=== PATIENT | male | born 1940 | race Caucasian/White ===

== ENCOUNTER 2016-08-18 02:39 | Inpatient (IN) | payer MEDICARE ==
--- NOTE | ~2016-08-18 | OP ---
Record Of Operation [facility] [address] [place]. [address] NAME: VIDHYA JAIN : 44 STATUS : ADM IN [facility]#: [id number] AGE: 75 ADM/REG DATE : 08/18/16 MR#: [id number] REPORT SERV DATE: 08/24/16 DICTATED BY: GRODON GOLDSMITH DATE: 08/24/16 REPORT STATUS : Draft TRANSCRIBED BY: MODL DATE: 08/24/16 DATE OF PROCEDURE: 08/24/2016 INTUBATION NOTE INDICATION FOR INTUBATION: Acute hypoxemic respiratory failure in the setting of septic shock. After developing worsening altered mental status/obtundation in the setting of septic shock, decision was made to intubate Mr. Jain. He was positioned in the usual fashion and premedicated with 20 mg of etomidate and 50 mg of rocuronium. PROCEDURE IN DETAIL: A #3 GlideScope was used to advance an 8.0 ET tube past his very sharp jagged teeth and into his trachea under direct visualization. After tube securement to his face with tape, it was noted that he was having hypoxemia in the 70s. He was bagged and only improved to the mid 80s. Tube was exchanged over a bougie with concern for a cuff leak due to a tear of the cuff when passing across his teeth; however, following exchange with a 7.5 ET tube, the original ET tube cuff was checked and had no leak. The 7.5 ET tube was once again visualized passing directly through the vocal cords using video laryngoscopy and secured to the patient at a depth of 22 cm. He had bilateral breath sounds after placement of both tubes and no air heard over the fundus of the stomach. There was positive color change on CO2 detector. After placement of both tubes as well as condensation visualized in tube with bagging, the patient did have hypotension with question of PEA arrest. Please see separate code blue note detailing those events. CHARLENE/FRAN Gordon Goldsmith MD / [id number] CC: Figueroa Brower M.D.
--- NOTE | ~2016-08-18 | CN ---
Consultation Report [facility] [address] [place]. [address] NAME: VIDHYA JAIN : 44 STATUS : ADM IN [facility]#: [id number] AGE: 75 ADM/REG DATE : 08/18/16 MR#: [id number] REPORT SERV DATE: 08/23/16 DICTATED BY: ALFREDA GOODRICH DATE: 08/23/16 REPORT STATUS : Draft TRANSCRIBED BY: MODL DATE: 08/23/16 CARDIOLOGY CONSULTATION DATE OF CONSULTATION: 08/23/2016 REASON FOR CONSULTATION: Atrial fibrillation and rapid ventricular response. HISTORY OF PRESENT ILLNESS: Mr. Jain is a 75-year-old man with a history of Crohn disease. The patient apparently was in his usual state of health until he was found by his son on 08/18/2016. The patient apparently had incontinence of stool and had fallen and was unable to get up. He was brought to an outside emergency room, where was found to have evidence of acute renal failure and shock. The patient was transferred to [facility] for further care. At this time, the patient is awake and cooperative. He is a relatively poor historian, however. He is borderline disoriented. He initially guessed the place as "[place]," but after prompting, is able to identify that he is in [place]. The patient does not appear to be aware that he is in a hospital setting. The patient denies any previous history of atrial fibrillation or other cardiovascular disease. He does report chronic exertional dyspnea, but denies any significant chest pain. The patient apparently became very weak before his fall. He is unable to accurately describe the circumstances of his pre-hospital course. At this time, the patient denies any unusual dyspnea or chest pain. PAST MEDICAL HISTORY: 1. Crohn disease. 2. Hypertension. 3. Dyslipidemia. PAST SURGICAL HISTORY: Unknown. FAMILY HISTORY: Apparently, negative for early coronary heart disease or sudden cardiac . SOCIAL HISTORY: The patient denies any previous history of tobacco use. There is no known history of alcohol or drug use. ALLERGIES: THE PATIENT REPORTS NO KNOWN MEDICATION ALLERGIES. HOME MEDICATIONS: 1. Allopurinol 300 mg p.o. daily. 2. Atenolol 50 mg p.o. daily. 3. Fenofibrate 160 mg p.o. daily. Consultation Report [facility] [address] [place]. [address] NAME: VIDHYA JAIN : 44 STATUS : ADM IN PAT#: [id number] AGE: 75 ADM/REG DATE : 08/18/16 MR#: [id number] REPORT SERV DATE: 08/23/16 DICTATED BY: ALFREDA GOODRICH DATE: 08/23/16 REPORT STATUS : Draft TRANSCRIBED BY: MODL DATE: 08/23/16 REVIEW OF SYSTEMS: An abbreviated review of systems is grossly negative; however, again the patient is a relatively poor historian and can provide only a limited review of systems. PHYSICAL EXAMINATION: VITAL SIGNS: The patient is presently on Levophed and esmolol. Heart rate is 118 beats per minute, blood pressure is 95/68 mmHg, temperature is 97.7 degrees Fahrenheit, oxygen saturation is 100% on a 2 L nasal cannula, respiratory rate is 13. CONSTITUTIONAL: The patient is a somewhat disheveled-appearing white man, who is in no acute distress. The patient is awake, alert and cooperative, though borderline disoriented to place and time. EYES: PERRL, EOMI, clear conjunctiva. HEAD, EARS, NOSE, THROAT: The patient has poor dentition with multiple missing teeth. Otherwise normal cranium, atraumatic with moist mucous membranes and grossly normal hard and soft palate. NECK: Supple with no obvious thyromegaly or lymphadenopathy. CARDIOVASCULAR: There is an irregularly irregular rhythm with a variable S1 and a physiologically split second heart sound. No significant murmurs, rubs, or gallops are noted. The jugular venous pressure appears to be at the upper limit of normal at 7 cm. PULMONARY: There are scattered posterior rales. The lungs are otherwise clear to auscultation bilaterally with no wheezing, rales, rhonchi, or dullness to percussion. ABDOMINAL: Soft, non-tender, non-distended with no hepatosplenomegaly noted. EXTREMITIES: There is 1+ pitting edema bilaterally with changes of chronic venous stasis. The patient's toenails are dystrophic. There is no clubbing or cyanosis noted. MUSCULOSKELETAL: Grossly normal strength and range of motion in all extremities. INTEGUMENTARY: Skin appears intact with no bruises, wounds, or active lesions noted. NEURO/PSYC: Alert and oriented x3 with no dysarthria, facial droop, or lateralizing weakness noted. DATA: 12-lead EKG: The patient's 12-lead EKG on admission shows atrial fibrillation. There is a right bundle-branch block pattern with nonspecific ST/T-wave abnormalities. Transthoracic echocardiogram: The patient's transthoracic echocardiogram dated 08/18/2016 shows normal left ventricular systolic function with a calculated ejection fraction of 55%. The study is technically difficult. There is a dilated left atrium. RV systolic function and RV size appear normal. Laboratory: Electrolytes show a sodium of 138, potassium 3.9, chloride is 98, CO2 of 23, BUN 12, creatinine is 2.07, glucose is 179, calcium is 8.6. Of note, the patient is currently on CRRT. Cell count shows a white blood cell count of 6.0, hemoglobin 8.1, hematocrit 24, platelets 48. Consultation Report [place] [id number] [facility] [place]. [address] NAME: VIDHYA JAIN : 44 STATUS : ADM IN [facility]#: [id number] AGE: 75 ADM/REG DATE : 08/18/16 MR#: [id number] REPORT SERV DATE: 08/23/16 DICTATED BY: ALFREDA GOODRICH DATE: 08/23/16 REPORT STATUS : Draft TRANSCRIBED BY: FRAN DATE: 08/23/16 Chest x-ray: The patient's chest x-ray on admission appeared to show mild volume overload with no other acute cardiopulmonary process. ASSESSMENT AND PLAN: 1. Atrial fibrillation with rapid ventricular response: The patient is currently being treated with both esmolol and Levophed. I have recommended that the patient be started on Edgar-Synephrine as this may allow down-titration of the patient's Levophed dose, which may in turn allow down-titration of the patient's esmolol dose. The patient's heart rate is currently in the range of 80 to 90 beats per minute. The patient's heart rate may be allowed to increase to a maximum of 120 beats per minute, which would be appropriate given his critically ill state. At this time, the patient does not appear to be a candidate for anticoagulation given possible acute GI bleed. The patient was noted to have heme-positive stool. We will consider a heparin drip if this is acceptable to the primary service and if a GI source of ongoing blood loss has been excluded. 2. Evaluation for coronary heart disease: Eventually, the patient should probably undergo a noninvasive workup for myocardial ischemia. The patient appears to have no other significant structural heart disease to explain his atrial fibrillation. This may be performed on an outpatient basis if appropriate. 3. Shock: The patient is felt to have aspiration pneumonia. His blood cultures have apparently been negative. The patient is being treated with stress-dose hydrocortisone and IV Zosyn. 4. Acute renal failure: The patient is being treated with CRRT. The Cardiology Service will continue to follow the patient closely during this hospitalization. JCH/MODL Alfreda Goodrich MD / [id number] CC: Jayant Padilla Amanda
--- NOTE | ~2016-08-18 | CN ---
Consultation Report [facility] [address] [place]. [address] NAME: VIDHYA JAIN : 44 STATUS : ADM IN [facility]#: [id number] AGE: 75 ADM/REG DATE : 08/18/16 MR#: [id number] REPORT SERV DATE: 08/24/16 DICTATED BY: KELLY GOLDSMITH DATE: 08/24/16 REPORT STATUS : Draft TRANSCRIBED BY: MODValery DATE: 08/24/16 DATE OF CONSULTATION: CODE BLUE SUMMARY Code blue was initiated following intubation to Mr. Jain in the CCU bed 4 at 10:40 a.m. The patient had just been intubated and we had difficulty obtaining O2 sat and he was noted to have thready pulses shortly following placement of endotracheal tube. CPR was initiated and he received 1 amp of epinephrine. ET tube was exchanged over a bougie under direct visualization video laryngoscopy and the original ET tube did not have a cuff leak which was a suspicion due to his sharp jagged teeth. There was no evidence of a cuff leak on inspection of the first tube and our working diagnosis is hemodynamic instability in the setting of profound septic shock currently requiring multiple vasopressors (when his intrathoracic pressures changed from negative to positive pressure ventilation after intubation, we suspected that this was the inciting factor for his hemodynamic instability). His PEA was detected at 10:40 and by 10:42, he had sinus tach on the monitor with a blood pressure of 136/85 and heart rate of 108. A followup x-ray confirmed tube position and his family was updated by telephone. CHARLENE/FRAN Kelly Goldsmith MD / [id number] CC: Figueroa Brower M.D.
--- NOTE | ~2016-08-18 | DS ---
Discharge Summary [facility] [address] [place]. [address] NAME: VIDHYA JAIN : 44 STATUS : ADM IN PAT#: [id number] AGE: 75 ADM/REG DATE : 08/18/16 MR#: [id number] REPORT SERV DATE: 08/25/16 DICTATED BY: GORDON GOLDSMITH DATE: 08/25/16 REPORT STATUS : Draft TRANSCRIBED BY: MODL DATE: 08/25/16 ADMISSION DATE: 08/18/2016 DISCHARGE DATE: Summary DATE OF : 08/25/2016. Mr. Jain is a 75-year-old gentleman transferred from [facility] in [place] who was found down by his son in a pool of stool. Apparently, he had not moved in a couple of days, although he had been awake. He had a longstanding history of Crohn's disease for over 40 years. He showed marked metabolic acidosis and mild hypotension on his initial presentation. He was admitted by Dr. Brower and also seen by Nephrology, Dr. Julio, on 08/18/2016. He was started on dialysis by Dr. Julio on the for acute kidney injury and was seen by Dr. Goodrich from Cardiology for atrial fibrillation with RVR on the at the request of Dr. Vasquez. I first met Mr. Jain on the after being transferred from Dr. Vasquez's service in the MICU to the CCU for SWITCHBOARD INSPECTOR availability, and on my initial assessment, he was altered and not protecting his airway with profound metabolic acidosis. I intubated him on the , and he actually developed a PEA arrest shortly after intubation presumably secondary to the hemodynamic changes associated with transition from negative pressure ventilation and positive pressure ventilation. He was broadened out to vancomycin and meropenem in light of worsening lactic acidosis despite SWITCHBOARD INSPECTOR and underwent a CT of the abdomen searching for sources of intra-abdominal sepsis with a high suspicion for bowel in the setting of long-standing Crohn's disease and refractory lactic acidosis despite SWITCHBOARD INSPECTOR. Unfortunately, he was far too unstable at this point to undergo any sort of surgical intervention and had 2 additional code blues (PEA arrests) that evening which were managed by Dr. Cheatham. He was ultimately made DNR based on his overall very poor prognosis by Dr. Steciw and in the CCU at 0635 hours and pronounced by nursing staff x2. His family (Joshua Jain) [phone] was updated at length on his deterioration multiple times over the last 2 days, and all of his questions were answered. DIAGNOSES AT TIME OF : Acute hypoxemic respiratory failure, profound septic shock, profound metabolic acidosis, acute renal failure, aspiration pneumonia, and Crohn's disease. Please see admitting history and physical, consulting notes, and daily progress notes for additional details of his hospital course. CHARLENE/FRAN Gordon Goldsmith MD / [id number]
--- NOTE | ~2016-08-18 | OP ---
Record Of [facility] [address] [place]. [address] NAME: VIDHYA GUTIERREZ : 44 STATUS : ADM IN PAT#: [id number] AGE: 75 ADM/REG DATE : 08/18/16 MR#: [id number] REPORT SERV DATE: 08/25/16 DICTATED BY: MEHREEN CHEATHAM DATE: 08/25/16 REPORT STATUS : Draft TRANSCRIBED BY: MODL DATE: 08/25/16 DATE OF PROCEDURE: CODE BLUE NOTE DATE OF CODE: 08/24/2016 at 2129 hours. The patient was in PEA. CPR was in progress upon my arrival. The patient already had been intubated earlier in the day. Two amps of epinephrine were given. Chest compressions were continued, and 1 amp of bicarbonate was given. There was return of circulation after 5 minutes. The patient was responsive to verbal commands. The patient's family was notified. /FRAN Mehreen Cheatham M.D. / [id number] CC: Figueroa Brower M.D.
--- NOTE | ~2016-08-18 | HP ---
History And Physical [place] [id number] [place]. [address] NAME: VIDHYA JAIN : 44 STATUS : ADM IN [facility]#: [id number] AGE: 75 ADM/REG DATE : 08/18/16 MR#: [id number] REPORT SERV DATE: 08/18/16 DICTATED BY: ANGEL CARRILLO DATE: 08/18/16 REPORT STATUS : Draft TRANSCRIBED BY: MODValery DATE: 08/18/16 DATE OF ADMISSION: 08/18/2016 TIME: 0317 hours. Seen in MICU, bed 9. HISTORY OF PRESENT ILLNESS: Mr. Jain was transferred from [facility], [place], [place]. He is a 75-year-old white male. According to the ER physician with whom I spoke, Mr. Jain was found down by his son in a pool of bowel movement. Apparently, had moved in a day or 2. He was awake, however, and brought to the ER in [facility]. The significance of past medical history is Crohn disease over 40 years, but denied any resections for his Crohn's. Apparently, not taking any current medication for his Crohn's as far as we can tell. His physician told me that he is mildly hypotensive, but awake and responsive. Arterial blood gases showed a marked metabolic acidosis. The patient said he had flu 3 weeks ago and has fallen twice in the past two weeks. PAST MEDICAL HISTORY: Significant for hypertension, hypercholesterolemia, and Crohn disease. HOME MEDICATIONS: Include allopurinol 300 mg 1 tablet p.o. daily, atenolol 50 mg 1 tablet p.o. daily, and fenofibrate 160 mg oral tablet daily. ALLERGIES: NO KNOWN ALLERGIES. SOCIAL HISTORY: He is retired. He has a son. PHYSICAL EXAMINATION: VITAL SIGNS: On examination, his vital signs at [place] were 92/45, pulse 94, respiratory rate was 22, saturation was 81%. Chest x-ray there reveals evidence of some pulmonary infiltrate. Vital signs here, temperature 95 to 96. Blood pressure 80/70, pulse approximately 90. GENERAL: The patient is a pale-appearing male, awake, alert, and appears to be responsive, appears dehydrated. HEENT: Head is normocephalic. Oral mucosa dry. NECK: Supple. No JVD. CHEST: Decreased breath sounds. Occasional crackle. CARDIAC: S1 and S2. No murmurs or gallops. ABDOMEN: Soft and nontender. No masses or organomegaly. EXTREMITIES: No clubbing, cyanosis, or edema. NEUROLOGIC: Cranial nerves II through XII are intact. Deep tendon reflexes are present, but diminished. LABORATORY DATA: Laboratory data obtained from [facility] record was done at 22:49 p.m. on 08/17/2016; pH of 7.18, pCO2 of 18, PO2 of 82, base excess -19.7, saturation was 92%. Sodium 140, potassium , chloride 107, CO2 of 6, anion gap was 27, History And Physical [place] [id number] [facility] [place]. [address] NAME: VIDHYA JAIN : 44 STATUS : ADM IN [facility]#: [id number] AGE: 75 ADM/REG DATE : 08/18/16 MR#: [id number] REPORT SERV DATE: 08/18/16 DICTATED BY: ANGEL CARRILLO DATE: 08/18/16 REPORT STATUS : Draft TRANSCRIBED BY: MODValery DATE: 08/18/16 glucose of 80; he had been hypoglycemic on arrival at [place]. His glucose at point of care was 57. BUN was 143, potassium was 25.2, GFR 1.5, calcium is 8.4. His albumin level was 3.5, total protein 6.2, globulin 2.7, magnesium 2.2. Troponin 1.05. ProBNP 24,409. Alkaline phosphatase 44, lipase 252, AST 26, ALT 8, bilirubin 0.6. Lactic acid 1.43, within normal results . H and H are 8.2 and 25.0, white count 5900, platelet count 79,000. The BNP is actually the proBNP at 24,409 and the normal range is 0.0 to 900. PT was 12.8, PTT 39.9, INR 0.9. X-ray was reviewed, mild fatty infiltration x-ray. IMPRESSION: 1. The patient presents with significant dehydration and acute renal failure. I suspect rhabdomyolysis and CPK had not been done. 2. Severe metabolic acidosis. 3. Possible evidence of aspiration pneumonia. 4. Markedly elevated proBNP, may be due to his renal failure. PLAN: Start rehydration. We will consult Nephrology. His potassium seems to be under control, right now. Remeasure labs and get lines placed for rehydration and possible administration of pressors and check CPK. RP/MODL Angel Carrillo M.D. / [id number] CC: Angel Carrillo M.D.
--- NOTE | ~2016-08-18 | OP ---
Record Of Operation [facility] [address] [place] [address] NAME: VIDHYA GUTIERREZ : 44 STATUS : ADM IN PAT#: [id number] AGE: 75 ADM/REG DATE : 08/18/16 MR#: [id number] REPORT SERV DATE: 08/25/16 DICTATED BY: MEHREEN CHEATHAM DATE: 08/25/16 REPORT STATUS : Draft TRANSCRIBED BY: MODL DATE: 08/25/16 DATE OF PROCEDURE: 08/24/2016 PROCEDURE: Placement of right femoral central line. REASON: The patient is status post code blue x2. 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 Right groin was prepped and draped in sterile fashion. Lidocaine 1% was used as a local anesthetic. The right femoral artery was localized using ultrasound guidance. Large bore needle was inserted under ultrasound guidance into the right femoral artery with good blood return. Guidewire was threaded over the needle which was then removed and a 12 cm catheter was threaded over the guidewire with subsequent removal of the guidewire. The line was sewn in place with 2-0 silk. Good blood waveform was transduced. Procedure without complications. /FRAN Mehreen Cheatham M.D. / [id number] CC: Figueroa Brower M.D.
--- NOTE | ~2016-08-18 | CN ---
Consultation Report [facility] [address] [place]. [address] NAME: VIDHYA JAIN : 44 STATUS : ADM IN PAT#: [id number] AGE: 75 ADM/REG DATE : 08/18/16 MR#: [id number] REPORT SERV DATE: 08/18/16 DICTATED BY: PAPO EMANUEL DATE: 08/18/16 REPORT STATUS : Draft TRANSCRIBED BY: FRAN DATE: 08/18/16 NEPHROLOGY CONSULT NOTE DATE OF CONSULTATION: HISTORY OF PRESENT ILLNESS: Mr. Jain is a 75-year-old white male, lives in [place], [place], has longstanding history of Crohn's with bowel resection in the past, none recently; chronic gout, on allopurinol; hypertension, on atenolol; hyperlipidemia, on fenofibrate. No known drug allergies. Recently, he had a bout with a flu. Yesterday, he was taken to the [facility] for falling at home. His son came home, found him in a pool of diarrhea, weak, and took him to the emergency room where he was found to have a creatinine of 25. I am consulted for assist in management of acute renal failure. Old records revealed that his PCP is Dr. Mane Hogan, phone number [phone] in [place], and he follows him for Crohn's, hypertension, gout, and hyperlipidemia, has not seen him since February of last year. At that time, his creatinine was 1.89, which has been stable for the last couple of years. The patient tells me he has had the flu a couple of weeks ago and then fell four days ago off the back steps, injured his back, and fell again the day of admission, and that is what prompted visit to the ER. He has had a lot of diarrhea lately. He has also not noticed any blood in his stools. He has been feeling well until recently when he quit eating and has become very very weak (his son said he even went out and bought a cane because he was unstable walking). SOCIAL HISTORY: Retired. His son cares for him, although he lives alone. ALLERGIES: HE HAS NO KNOWN DRUG ALLERGIES. FAMILY HISTORY: Noncontributory. HOME MEDICATIONS: Allopurinol, atenolol, and fenofibrate. REVIEW OF SYSTEMS: As above. Denies any fever, chills, but not a very good historian at this point and son is not available. PHYSICAL EXAMINATION: VITAL SIGNS: Blood pressures have been low. He has been on pressors. Blood pressure has been low, as low as 65/46, and they have adjusted his pressors accordingly, currently at 110 with a heart rate of 108, afebrile, 98.4. GENERAL: He is alert and does answer questions, complaining of back pain. He tells me he fell off the back stoop. HEENT: Otherwise, unremarkable. LUNGS: Clear anteriorly. CARDIOVASCULAR: Without rub. ABDOMEN: Soft. Old incisions noted. Consultation Report [address] [place]. [address] NAME: VIDHYA JAIN : 44 STATUS : ADM IN [facility]#: [id number] AGE: 75 ADM/REG DATE : 08/18/16 MR#: [id number] REPORT SERV DATE: 08/18/16 DICTATED BY: PAPO EMANUEL DATE: 08/18/16 REPORT STATUS : Draft TRANSCRIBED BY: FRAN DATE: 08/18/16 EXTREMITIES: 1+ edema in his lower extremities, but wrinkly where he probably has had more edema in the recent past. Dry, flaky skin on both feet with skin lesion medially in his left foot. NEUROLOGIC: He is oriented x3 and cooperative, but he is nonfocal and weak diffusely. LABORATORY DATA: Lab shows sodium 146, potassium 5.4, chloride 112, CO2 of 10 with BUN of 141, creatinine 22.2. Blood sugar 113, albumin 2.9. Normal liver enzymes. CPK of 909 and negative MBs with troponin 0.3. TSH elevated at 129, low T4 at 0.9, low B12 at 155. Elevated BNP of 1637, normal cortisol of 27. INR of 1.0. Stool shows C diff negative, positive guaiac. Blood gas revealed pH of 7.33, pCO2 of 13, pO2 of 129 on 36% FiO2. White count is 5.1, hemoglobin 6.8, hematocrit 20, platelet count 77,000 (has received a unit of blood). Urinalysis shows proteinuria, quite heavy, specific gravity 1.014 and white count is 51,000. Culture pending. Chest x-ray shows bilateral infiltrates, possibly aspiration. ASSESSMENT: 1. Acute kidney injury on chronic kidney disease. Baseline creatinine 1.9, multifactorial, probably volume contraction from diarrhea and poor p.o. intake. Moderate rhabdo, CPK less than a 1000. CPK may have progressed since last seen in February of last year, especially if he has been feeling ill lately and recent bout of flu, cannot rule out sepsis although white count is normal. Procalcitonin pending. Cultures pending. 2. Anemia, it appears to be acute. 3. Crohn disease, status post partial bowel resection, diarrhea recently, C diff negative, normal liver enzymes, suspect viral or medication induced, cannot tell me what all medications he has been taking in addition to his baseline medicines, and his son lets the patient takes his own medications. 4. Hypertension, currently hypotensive, on Levophed. 5. Gout, on allopurinol at home. 6. Elevated lipids, on fenofibrate at home. 7. Recent flu two weeks ago, apparently recovered although some of his GI symptoms may still be related to viral illness. 8. Recent fall four days to seven days ago with back pain. 9. Bilateral infiltrates, probably aspiration pneumonia after being found down at home. 10.Hypothyroidism, which is a new diagnosis and B12 deficiency, which is a new diagnosis along with anemia with positive stool guaiacs, worry about GI losses. No history of any other blood losses. 11.Stool guaiac positive. 12.Metabolic acidosis, quite severe, suspect secondary to diarrhea plus acute kidney injury on chronic kidney disease. 13.Elevated CPK from muscle injury. 14.Positive troponin and elevated BNP, worry about congestive heart failure. Echocardiogram has been done, but results pending. 15.History of gout. PLAN: He has no strong indication for acute dialysis at this point, we will continue current Consultation Report [facility] [place] [id number] [place]. [address] NAME: VIDHYA JAIN : 44 STATUS : ADM IN [facility]#: [id number] AGE: 75 ADM/REG DATE : 08/18/16 MR#: [id number] REPORT SERV DATE: 08/18/16 DICTATED BY: PAPO EMANUEL DATE: 08/18/16 REPORT STATUS : Draft TRANSCRIBED BY: MODL DATE: 08/18/16 therapy, watch serial labs, and decide day-to-day. His son is on his way here, we will discuss the situation with him. I have called Dr. Mane Hogan and ct review of his past medical history with him, and he is faxing all of his records from last visit on 02/25/2016. KELLI/FRAN Papo Emanuel M.D. / [id number] CC: Figueroa Brower M.D. Dr. Mane Hogan
--- NOTE | ~2016-08-18 | OP ---
Record Of Operation [facility] [address] [place]. [address] NAME: VIDHYA GUTIERREZ : 44 STATUS : ADM IN PAT#: [id number] AGE: 75 ADM/REG DATE : 08/18/16 MR#: [id number] REPORT SERV DATE: 08/20/16 DICTATED BY: ROMERO PAUL DATE: 08/19/16 REPORT STATUS : Draft TRANSCRIBED BY: MODL DATE: 08/19/16 DATE OF PROCEDURE: 08/19/2016 PREOPERATIVE DIAGNOSIS: End-stage renal disease. POSTOPERATIVE DIAGNOSIS: End-stage renal disease PROCEDURE: Right IJ PermCath. SURGEON: Romero Paul MD ANESTHESIA: Local with sedation. COMPLICATIONS: None. BLOOD LOSS: Minimal. HISTORY: The patient is a 75-year-old male with renal failure in need of PermCath for dialysis. This was discussed with the family, they expressed understanding, and desired to proceed DESCRIPTION OF PROCEDURE: The patient was taken to the operating room and placed in the supine position. He was given IV sedation without complication. His neck and chest were prepped and draped in sterile fashion. Ultrasound was used to identify the internal jugular vein on the right. Patency was confirmed with compression. 1% lidocaine was infiltrated in the skin and subcutaneous tissues. Under ultrasound guidance, an 18-gauge needle placed into the internal jugular vein. Wire passed into the SVC and IVC under fluoroscopic guidance. The needle was removed. A site for PermCath exit was chosen on the chest wall. 1% lidocaine was infiltrated here. An 11 blade was used to create an exit site for the PermCath and enlarge the access site. The 24 curved PermCath was tunneled from the exit site to the access site. Under fluoroscopic guidance, the peel-away sheath and dilator passed were passed over the wire into the SVC. The wire and dilator removed. The catheter was placed through the peel-away sheath and the sheath was peeled away without difficulty. Both ports aspirated and flushed without difficulty. They were locked with full strength heparin. The access site and exit site were closed with 4-0 Monocryl suture. The PermCath was secured to the chest wall with Ethilon suture. The patient did have an episode of desaturation and anesthesia manages first with attempted intubation then with bagging and his sats came up without problem. CSRon/FRAN Romero Paul M.D. Record Of Operation [facility] [address] [place]. [address] NAME: VIDHYA GUTIERREZ : 44 STATUS : ADM IN PAT#: [id number] AGE: 75 ADM/REG DATE : 08/18/16 MR#: [id number] REPORT SERV DATE: 08/20/16 DICTATED BY: ROMERO PAUL DATE: 08/19/16 REPORT STATUS : Draft TRANSCRIBED BY: FRAN DATE: 08/19/16 / [id number] CC: Jayant Padilla
[2016-08-18 03:28] LABS: ALLENS TEST Pos; BE (BASE EXCESS) -19.8 MEQ/L (0 +/- 2.5); CARBOXYHEMOGLOBIN 0.3 % (0-3); DEVICE NC; HCO3 (ACTUAL BICARBONATE) 6.4 MEQ/L (23-27); HEMOBLOGIN CONTENT 8.6 G/DL (14-18); INSTRUMENT SERIAL # 8083; METHEMOGLOBIN 0.3 % (0-3); O2 CONTENT 11.6 VOL% (18-24); OPERATOR ID 334499; PCO2 (CO2 TENSION) 17 MMHG (35-45); PO2 (O2 TENSION) 103 MMHG (79-93); SAMPLE Arterial
[2016-08-18 04:43] LABS: ALLENS TEST Pos; BE (BASE EXCESS) -17.6 MEQ/L (0 +/- 2.5); CARBOXYHEMOGLOBIN 0.4 % (0-3); DEVICE NC; HCO3 (ACTUAL BICARBONATE) 6.8 MEQ/L (23-27); INSTRUMENT SERIAL # 8083; METHEMOGLOBIN 0.1 % (0-3); O2 CONTENT 8.5 VOL% (18-24); OPERATOR ID 334499; PCO2 (CO2 TENSION) 13 MMHG (35-45); PO2 (O2 TENSION) 129 MMHG (79-93); SAMPLE Arterial; pH 7.33 (7.37-7.43)
[2016-08-18 04:44] LABS: MEAN CORPUS HGB CONC 33.8 g/dL (32.0-36.0); MEAN CORPUSCULAR HEMOGLOB 34.9 pg (26.0-34.0); MEAN CORPUSCULAR VOLUME 103.1 fL (80-100); MEAN PLATELET VOLUME 10.8 fL (9.2-13.0); PLATELET COUNT 77 10/3/uL (150-400); RBC DISTRIBUTION WIDTH 16.2 % (12.0-16.0); RED CELL COUNT 1.95 10/6/uL (4.7-6.1); WHITE BLOOD CELLS 5.1 10/3/uL (4.5-10.5)
[2016-08-18 04:45] LABS: HEMATOCRIT 20.1 % (40.0-51.0); HEMOGLOBIN 6.8 g/dL (13.6-17.8); PROTIME (NOT ORD) 13.5 SEC (12.0-14.5)
[2016-08-18 04:46] LABS: PARTIAL THROMBO TIME 38.9 SEC (22.5-37.2)
[2016-08-18 04:48] LABS: MANUAL DIFF YES %
[2016-08-18 04:57] LABS: ALBUMIN 2.9 G/DL (3.5-5.0); ALKALINE PHOSPHATASE 43 U/L (45-117); CALCIUM, SERUM 8.3 MG/DL (8.5-10.4); CHLORIDE, SERUM 112 MMOL/L (96-112); CPK (IF ELEVATED MB BANDS) 909 U/L (0-200); GFR AFRICAN AMERICAN 2 ML/MIN (>=60); GFR NON AFRICAN AMERICAN 2 ML/MIN (>=60); GLUCOSE, SERUM 113 MG/DL (60-99); POTASSIUM, SERUM 5.4 MMOL/L (3.5-5.3); SGOT(AST) 28 U/L (5-40); SGPT(ALT) 12 U/L (5-65); SODIUM, SERUM 146 MMOL/L (135-148); T4 (THYROXINE) TOTAL 0.9 MCG/DL (4.5-12.0); TOTAL BILIRUBIN 0.9 MG/DL (0-1.2); TOTAL PROTEIN 5.9 G/DL (6.0-8.5)
[2016-08-18 04:59] LABS: BUN (BLOOD UREA NITROGEN) 141 MG/DL (6-23); CO2 (CARBON DIOXIDE) 10 MMOL/L (24-34)
[2016-08-18 05:09] LABS: BAND NEUTROPHILS 6 %; LYMPHOCYTES 12 %; LYMPHOCYTES ABSOLUTE (CALC) 0.61 10/3/uL (0.67-4.30); MONOCYTES 1 %; MONOCYTES ABSOLUTE (CALC) 0.05 10/3/uL (0.21-1.20); NEUTROPHILS ABSOLUTE (CALC) 4.44 10/3/uL (2.02-8.40); SEGMENTED NEUTROPHIL (0) 81 %; TOTAL NUCLEATED CELLS 100
[2016-08-18 05:10] LABS: BURR CELLS 1+ (3-10/OIF) (0-2/OIF); MACROCYTES 1+ (5-10/OIF) (0-5/OIF); PLATELET ESTIMATE DEC (ADEQUATE)
[2016-08-18 05:21] LABS: CK-MB 43.1 NG/ML
[2016-08-18 05:25] LABS: CKMB INDEX (NOT ORD) 4.7
[2016-08-18 06:44] LABS: INFLUENZA A SCREEN NEGATIVE (NEGATIVE); INFLUENZA B SCREEN NEGATIVE (NEGATIVE)
[2016-08-18 06:57] LABS: ASCORBIC ACID (UR NOT ORDER) NEG (NEG); BILIRUBIN, URINE NEGATIVE (NEG); KETONE, URINE TRACE MG/DL (NEG); LEUKOCYTE ESTERASE(NOT OR SMALL (NEG); WBC (NOT ORDERED) (RFLEX) 51 (0-5)
[2016-08-18 07:33] LABS: FOLATE 18.4 NG/ML (>5.2)
[2016-08-18 13:59] LABS: ALBUMIN 2.9 G/DL (3.5-5.0); BUN (BLOOD UREA NITROGEN) 143 MG/DL (6-23); CALCIUM, SERUM 7.6 MG/DL (8.5-10.4); CHLORIDE, SERUM 112 MMOL/L (96-112); CO2 (CARBON DIOXIDE) 9 MMOL/L (24-34); GFR AFRICAN AMERICAN 2 ML/MIN (>=60); GFR NON AFRICAN AMERICAN 2 ML/MIN (>=60); GLUCOSE, SERUM 81 MG/DL (60-99); POTASSIUM, SERUM 5.6 MMOL/L (3.5-5.3); SODIUM, SERUM 146 MMOL/L (135-148)
[2016-08-18 14:39] LABS: HEMOGLOBIN 7.8 g/dL (13.6-17.8); MEAN CORPUS HGB CONC 33.5 g/dL (32.0-36.0); MEAN CORPUSCULAR HEMOGLOB 34.1 pg (26.0-34.0); MEAN CORPUSCULAR VOLUME 101.7 fL (80-100); MEAN PLATELET VOLUME 10.7 fL (9.2-13.0); PLATELET COUNT 70 10/3/uL (150-400); RBC DISTRIBUTION WIDTH 17.6 % (12.0-16.0); RED CELL COUNT 2.29 10/6/uL (4.7-6.1); WHITE BLOOD CELLS 5.1 10/3/uL (4.5-10.5)
[2016-08-18 14:40] LABS: HEMATOCRIT 23.3 % (40.0-51.0); MANUAL DIFF YES %
[2016-08-18 15:14] LABS: BAND NEUTROPHILS 1 %; EOSINOPHILS 1 %; EOSINOPHILS ABSOLUTE (CALC) 0.05 10/3/uL (0.0-0.53); LYMPHOCYTES 4 %; MONOCYTES 1 %; MONOCYTES ABSOLUTE (CALC) 0.05 10/3/uL (0.21-1.20); NEUTROPHILS ABSOLUTE (CALC) 4.79 10/3/uL (2.02-8.40); SEGMENTED NEUTROPHIL (0) 93 %; TOTAL NUCLEATED CELLS 100
[2016-08-18 15:32] LABS: ANISOCYTOSIS 1+ (5-10/OIF) (0-5/OIF); MACROCYTES 1+ (5-10/OIF) (0-5/OIF); OVALOCYTES 1+ (3-10/OIF) (0-2/OIF); PLATELET ESTIMATE DEC (ADEQUATE)
[2016-08-18 15:37] LABS: PROCALCITONIN 3.22 ng/mL (<0.5)
[2016-08-18] MEDS ORDERED: Z300 PO (15:38)
[2016-08-18] MEDS ORDERED: ATEN50 PO (15:38)
[2016-08-18] MEDS ORDERED: LOFIBRA160 MG PO (15:38)
[2016-08-19 01:31] LABS: PHOSPHORUS, SERUM 9.3 MG/DL (2.5-4.5)
[2016-08-19 01:32] LABS: ALBUMIN 2.9 G/DL (3.5-5.0); BUN (BLOOD UREA NITROGEN) 138 MG/DL (6-23); CALCIUM, SERUM 7.5 MG/DL (8.5-10.4); CHLORIDE, SERUM 111 MMOL/L (96-112); CO2 (CARBON DIOXIDE) 10 MMOL/L (24-34); GFR AFRICAN AMERICAN 2 ML/MIN (>=60); GFR NON AFRICAN AMERICAN 2 ML/MIN (>=60); GLUCOSE, SERUM 110 MG/DL (60-99); POTASSIUM, SERUM 5.4 MMOL/L (3.5-5.3); SODIUM, SERUM 147 MMOL/L (135-148)
[2016-08-19 04:26] LABS: HEMATOCRIT 21.4 % (40.0-51.0); HEMOGLOBIN 7.4 g/dL (13.6-17.8); MEAN CORPUS HGB CONC 34.6 g/dL (32.0-36.0); MEAN CORPUSCULAR HEMOGLOB 34.6 pg (26.0-34.0); MEAN PLATELET VOLUME 11.1 fL (9.2-13.0); PLATELET COUNT 67 10/3/uL (150-400); RBC DISTRIBUTION WIDTH 17.5 % (12.0-16.0); RED CELL COUNT 2.14 10/6/uL (4.7-6.1); WHITE BLOOD CELLS 5.4 10/3/uL (4.5-10.5)
[2016-08-19 04:41] LABS: MANUAL DIFF YES %
[2016-08-19 04:54] LABS: ALBUMIN 2.8 G/DL (3.5-5.0); ALKALINE PHOSPHATASE 37 U/L (45-117); CALCIUM, SERUM 7.6 MG/DL (8.5-10.4); CHLORIDE, SERUM 111 MMOL/L (96-112); GFR AFRICAN AMERICAN 2 ML/MIN (>=60); GFR NON AFRICAN AMERICAN 2 ML/MIN (>=60); GLOBULIN 2.9 G/DL (2.5-4.1); POTASSIUM, SERUM 5.1 MMOL/L (3.5-5.3); SGOT(AST) 29 U/L (5-40); SGPT(ALT) 12 U/L (5-65); SODIUM, SERUM 147 MMOL/L (135-148); TOTAL PROTEIN 5.7 G/DL (6.0-8.5)
[2016-08-19 04:55] LABS: BUN (BLOOD UREA NITROGEN) 135 MG/DL (6-23); CO2 (CARBON DIOXIDE) 12 MMOL/L (24-34); GLUCOSE, SERUM 141 MG/DL (60-99)
[2016-08-19 05:15] LABS: PHOSPHORUS, SERUM 9.3 MG/DL (2.5-4.5)
[2016-08-19 06:28] LABS: BAND NEUTROPHILS 5 %; IMMATURE GRANS ABSOLUTE (CALC) 0.05 10/3/uL (0.0-0.11); LYMPHOCYTES 10 %; LYMPHOCYTES ABSOLUTE (CALC) 0.54 10/3/uL (0.67-4.30); MYELOCYTES 1 %; NEUTROPHILS ABSOLUTE (CALC) 4.81 10/3/uL (2.02-8.40); NUCLEATED RED BLOOD CELLS 3 /100WBC (0); SEGMENTED NEUTROPHIL (0) 84 %; TOTAL NUCLEATED CELLS 100
[2016-08-19 06:29] LABS: ANISOCYTOSIS 1+ (5-10/OIF) (0-5/OIF); MACROCYTES 1+ (5-10/OIF) (0-5/OIF); PLATELET ESTIMATE DEC (ADEQUATE)
[2016-08-19 15:06] LABS: TROPONIN I 0.46 NG/ML (<0.05)
[2016-08-19 19:22] LABS: ALLENS TEST Pos; BE (BASE EXCESS) -9.7 MEQ/L (0 +/- 2.5); BIPAP 14/5 cm.H2O; CARBOXYHEMOGLOBIN 0.5 % (0-3); HCO3 (ACTUAL BICARBONATE) 15.4 MEQ/L (23-27); HEMOBLOGIN CONTENT 7.7 G/DL (14-18); INSTRUMENT SERIAL # 8083; METHEMOGLOBIN 0.3 % (0-3); O2 CONTENT 10.4 VOL% (18-24); OPERATOR ID 13415; PCO2 (CO2 TENSION) 31 MMHG (35-45); PO2 (O2 TENSION) 89 MMHG (79-93); SAMPLE Arterial; pH 7.32 (7.37-7.43)
[2016-08-19 23:09] LABS: HEMATOCRIT 21.3 % (40.0-51.0); HEMOGLOBIN 7.6 g/dL (13.6-17.8); MEAN CORPUS HGB CONC 35.7 g/dL (32.0-36.0); MEAN CORPUSCULAR HEMOGLOB 35.2 pg (26.0-34.0); MEAN CORPUSCULAR VOLUME 98.6 fL (80-100); MEAN PLATELET VOLUME 10.8 fL (9.2-13.0); PLATELET COUNT 67 10/3/uL (150-400); RBC DISTRIBUTION WIDTH 17.8 % (12.0-16.0); RED CELL COUNT 2.16 10/6/uL (4.7-6.1); WHITE BLOOD CELLS 7.4 10/3/uL (4.5-10.5)
[2016-08-19 23:13] LABS: MANUAL DIFF YES %
[2016-08-19 23:22] LABS: CHLORIDE, SERUM 105 MMOL/L (96-112); POTASSIUM, SERUM 4.6 MMOL/L (3.5-5.3); SODIUM, SERUM 144 MMOL/L (135-148)
[2016-08-19 23:24] LABS: BUN (BLOOD UREA NITROGEN) 118 MG/DL (6-23); CO2 (CARBON DIOXIDE) 19 MMOL/L (24-34); GFR AFRICAN AMERICAN 3 ML/MIN (>=60); GFR NON AFRICAN AMERICAN 2 ML/MIN (>=60); GLUCOSE, SERUM 210 MG/DL (60-99)
[2016-08-20 00:13] LABS: BAND NEUTROPHILS 1 %; LYMPHOCYTES 3 %; LYMPHOCYTES ABSOLUTE (CALC) 0.22 10/3/uL (0.67-4.30); MONOCYTES 2 %; MONOCYTES ABSOLUTE (CALC) 0.15 10/3/uL (0.21-1.20); NEUTROPHILS ABSOLUTE (CALC) 7.03 10/3/uL (2.02-8.40); SEGMENTED NEUTROPHIL (0) 94 %; TOTAL NUCLEATED CELLS 100
[2016-08-20 00:14] LABS: ANISOCYTOSIS 1+ (5-10/OIF) (0-5/OIF); PLATELET ESTIMATE DEC (ADEQUATE)
[2016-08-20 03:25] LABS: BE (BASE EXCESS) -4.7 MEQ/L (0 +/- 2.5); BIPAP 16/5 cm.H2O; CARBOXYHEMOGLOBIN 0.3 % (0-3); HCO3 (ACTUAL BICARBONATE) 19.3 MEQ/L (23-27); HEMOBLOGIN CONTENT 7.5 G/DL (14-18); INSTRUMENT SERIAL # 8083; METHEMOGLOBIN 0.3 % (0-3); O2 CONTENT 10.3 VOL% (18-24); PCO2 (CO2 TENSION) 31 MMHG (35-45); PO2 (O2 TENSION) 107 MMHG (79-93); SAMPLE Arterial; pH 7.41 (7.37-7.43)
[2016-08-20 03:26] LABS: ALLENS TEST Pos
[2016-08-20 05:21] LABS: BASOPHILS 0 %; EOSINOPHILS 0 %; HEMATOCRIT 21.2 % (40.0-51.0); HEMOGLOBIN 7.3 g/dL (13.6-17.8); IMMATURE GRANULOCYTES 0.7 %; IMMATURE GRANULOCYTES ABSOLUTE 0.05 10/3/uL (0.0-0.11); LYMPHOCYTES 6.9 %; LYMPHOCYTES ABSOLUTE 0.51 10/3/uL (0.67-4.30); MEAN CORPUS HGB CONC 34.4 g/dL (32.0-36.0); MEAN CORPUSCULAR HEMOGLOB 34.3 pg (26.0-34.0); MEAN CORPUSCULAR VOLUME 99.5 fL (80-100); MEAN PLATELET VOLUME 10.8 fL (9.2-13.0); MONOCYTES ABSOLUTE 0.22 10/3/uL (0.21-1.20); NEUTROPHILS 89.4 %; NEUTROPHILS ABSOLUTE 6.63 10/3/uL (2.02-8.40); PLATELET COUNT 66 10/3/uL (150-400); RBC DISTRIBUTION WIDTH 17.4 % (12.0-16.0); RED CELL COUNT 2.13 10/6/uL (4.7-6.1); WHITE BLOOD CELLS 7.4 10/3/uL (4.5-10.5)
[2016-08-20 05:24] LABS: MANUAL DIFF NO %
[2016-08-20 05:38] LABS: CALCIUM, SERUM 7.3 MG/DL (8.5-10.4); CHLORIDE, SERUM 102 MMOL/L (96-112); CO2 (CARBON DIOXIDE) 20 MMOL/L (24-34); GLUCOSE, SERUM 206 MG/DL (60-99); POTASSIUM, SERUM 4.4 MMOL/L (3.5-5.3); SODIUM, SERUM 142 MMOL/L (135-148)
[2016-08-20 05:39] LABS: BUN (BLOOD UREA NITROGEN) 95 MG/DL (6-23); GFR AFRICAN AMERICAN 3 ML/MIN (>=60); GFR NON AFRICAN AMERICAN 3 ML/MIN (>=60); PHOSPHORUS, SERUM 5.9 MG/DL (2.5-4.5)
[2016-08-20 05:54] LABS: ANISOCYTOSIS 1+ (5-10/OIF) (0-5/OIF); PLATELET ESTIMATE DEC (ADEQUATE)
[2016-08-20 05:55] LABS: HYPOCHROMIA 1+ (3-10/OIF) (0-2/OIF)
[2016-08-20 10:21] LABS: HEMOGLOBIN 7.1 g/dL (13.6-17.8); MEAN CORPUS HGB CONC 35.1 g/dL (32.0-36.0); MEAN CORPUSCULAR HEMOGLOB 34.6 pg (26.0-34.0); MEAN CORPUSCULAR VOLUME 98.5 fL (80-100); MEAN PLATELET VOLUME 10.9 fL (9.2-13.0); PLATELET COUNT 63 10/3/uL (150-400); RBC DISTRIBUTION WIDTH 17.4 % (12.0-16.0); RED CELL COUNT 2.05 10/6/uL (4.7-6.1); WHITE BLOOD CELLS 6.2 10/3/uL (4.5-10.5)
[2016-08-20 10:22] LABS: HEMATOCRIT 20.2 % (40.0-51.0)
[2016-08-20 10:23] LABS: MANUAL DIFF YES %
[2016-08-20 10:40] LABS: TROPONIN I 0.38 NG/ML (<0.05)
[2016-08-20 11:07] LABS: ANISOCYTOSIS 1+ (5-10/OIF) (0-5/OIF); BAND NEUTROPHILS 2 %; LYMPHOCYTES 6 %; LYMPHOCYTES ABSOLUTE (CALC) 0.37 10/3/uL (0.67-4.30); NEUTROPHILS ABSOLUTE (CALC) 5.83 10/3/uL (2.02-8.40); PLATELET ESTIMATE DEC (ADEQUATE); SEGMENTED NEUTROPHIL (0) 92 %; TOTAL NUCLEATED CELLS 100; TOXIC GRANULATION 1+
[2016-08-20 13:24] LABS: CALCIUM, SERUM 7.2 MG/DL (8.5-10.4); CHLORIDE, SERUM 101 MMOL/L (96-112); CO2 (CARBON DIOXIDE) 24 MMOL/L (24-34); GFR AFRICAN AMERICAN 4 ML/MIN (>=60); GFR NON AFRICAN AMERICAN 4 ML/MIN (>=60); GLUCOSE, SERUM 208 MG/DL (60-99); POTASSIUM, SERUM 4.2 MMOL/L (3.5-5.3); SODIUM, SERUM 144 MMOL/L (135-148)
[2016-08-20 13:25] LABS: BUN (BLOOD UREA NITROGEN) 80 MG/DL (6-23)
[2016-08-20 16:24] LABS: A/G RATIO 0.9 (0.7-1.9); ALBUMIN 2.8 G/DL (3.5-5.0); ALKALINE PHOSPHATASE 39 U/L (45-117); CHLORIDE, SERUM 101 MMOL/L (96-112); CO2 (CARBON DIOXIDE) 24 MMOL/L (24-34); POTASSIUM, SERUM 4.2 MMOL/L (3.5-5.3); SGOT(AST) 39 U/L (5-40); SGPT(ALT) 15 U/L (5-65); SODIUM, SERUM 142 MMOL/L (135-148); TOTAL PROTEIN 5.8 G/DL (6.0-8.5)
[2016-08-20 16:25] LABS: BUN (BLOOD UREA NITROGEN) 66 MG/DL (6-23); CALCIUM, SERUM 8.3 MG/DL (8.5-10.4); GFR AFRICAN AMERICAN 5 ML/MIN (>=60); GFR NON AFRICAN AMERICAN 4 ML/MIN (>=60); GLUCOSE, SERUM 162 MG/DL (60-99); PHOSPHORUS, SERUM 4.1 MG/DL (2.5-4.5); TOTAL BILIRUBIN 0.4 MG/DL (0-1.2)
[2016-08-20 18:51] LABS: BASOPHILS 0.2 %; BASOPHILS ABSOLUTE 0.01 10/3/uL (0.0-0.16); EOSINOPHILS 0.2 %; EOSINOPHILS ABSOLUTE 0.01 10/3/uL (0.0-0.53); HEMATOCRIT 23.5 % (40.0-51.0); HEMOGLOBIN 8.2 g/dL (13.6-17.8); IMMATURE GRANULOCYTES 0.7 %; IMMATURE GRANULOCYTES ABSOLUTE 0.04 10/3/uL (0.0-0.11); LYMPHOCYTES 8.2 %; LYMPHOCYTES ABSOLUTE 0.46 10/3/uL (0.67-4.30); MEAN CORPUS HGB CONC 34.9 g/dL (32.0-36.0); MEAN CORPUSCULAR HEMOGLOB 33.9 pg (26.0-34.0); MEAN CORPUSCULAR VOLUME 97.1 fL (80-100); MONOCYTES 3.8 %; MONOCYTES ABSOLUTE 0.21 10/3/uL (0.21-1.20); NEUTROPHILS 86.9 %; NEUTROPHILS ABSOLUTE 4.85 10/3/uL (2.02-8.40); PLATELET COUNT 61 10/3/uL (150-400); RBC DISTRIBUTION WIDTH 17.6 % (12.0-16.0); RED CELL COUNT 2.42 10/6/uL (4.7-6.1); WHITE BLOOD CELLS 5.6 10/3/uL (4.5-10.5)
[2016-08-20 18:52] LABS: MANUAL DIFF NO %
[2016-08-20 22:13] LABS: HEMATOCRIT 23.4 % (40.0-51.0); HEMOGLOBIN 8.3 g/dL (13.6-17.8); MEAN CORPUS HGB CONC 35.5 g/dL (32.0-36.0); MEAN CORPUSCULAR HEMOGLOB 34.3 pg (26.0-34.0); MEAN CORPUSCULAR VOLUME 96.7 fL (80-100); MEAN PLATELET VOLUME 10.9 fL (9.2-13.0); PLATELET COUNT 53 10/3/uL (150-400); RBC DISTRIBUTION WIDTH 17.9 % (12.0-16.0); RED CELL COUNT 2.42 10/6/uL (4.7-6.1); WHITE BLOOD CELLS 5.4 10/3/uL (4.5-10.5)
[2016-08-20 22:27] LABS: CALCIUM, SERUM 9.1 MG/DL (8.5-10.4); CHLORIDE, SERUM 99 MMOL/L (96-112); CO2 (CARBON DIOXIDE) 25 MMOL/L (24-34); GFR AFRICAN AMERICAN 6 ML/MIN (>=60); GFR NON AFRICAN AMERICAN 6 ML/MIN (>=60); GLUCOSE, SERUM 142 MG/DL (60-99); POTASSIUM, SERUM 4.1 MMOL/L (3.5-5.3); SODIUM, SERUM 140 MMOL/L (135-148)
[2016-08-20 22:32] LABS: BUN (BLOOD UREA NITROGEN) 55 MG/DL (6-23); CREATININE 8.56 MG/DL (0.70-1.30)
[2016-08-20 22:33] LABS: MANUAL DIFF YES %
[2016-08-20 23:11] LABS: A/G RATIO 0.9 (0.7-1.9); ALBUMIN 2.8 G/DL (3.5-5.0); ALKALINE PHOSPHATASE 38 U/L (45-117); GLOBULIN 3.1 G/DL (2.5-4.1); PHOSPHORUS, SERUM 3.7 MG/DL (2.5-4.5); SGOT(AST) 42 U/L (5-40); SGPT(ALT) 16 U/L (5-65); TOTAL BILIRUBIN 0.7 MG/DL (0-1.2); TOTAL PROTEIN 5.9 G/DL (6.0-8.5)
[2016-08-20 23:46] LABS: ANISOCYTOSIS 1+ (5-10/OIF) (0-5/OIF); BAND NEUTROPHILS 1 %; LYMPHOCYTES 6 %; LYMPHOCYTES ABSOLUTE (CALC) 0.32 10/3/uL (0.67-4.30); NEUTROPHILS ABSOLUTE (CALC) 5.08 10/3/uL (2.02-8.40); PLATELET ESTIMATE DEC (ADEQUATE); SEGMENTED NEUTROPHIL (0) 93 %; TOTAL NUCLEATED CELLS 100
[2016-08-21 03:33] LABS: ALLENS TEST Pos; BE (BASE EXCESS) -2.2 MEQ/L (0 +/- 2.5); CARBOXYHEMOGLOBIN 0.3 % (0-3); DEVICE NC; HCO3 (ACTUAL BICARBONATE) 22.2 MEQ/L (23-27); INSTRUMENT SERIAL # 8083; METHEMOGLOBIN 0.3 % (0-3); O2 CONTENT 12.2 VOL% (18-24); PCO2 (CO2 TENSION) 37 MMHG (35-45); PO2 (O2 TENSION) 92 MMHG (79-93); SAMPLE Arterial
[2016-08-21 04:30] LABS: HEMATOCRIT 24.5 % (40.0-51.0); HEMOGLOBIN 8.5 g/dL (13.6-17.8); MEAN CORPUS HGB CONC 34.7 g/dL (32.0-36.0); MEAN CORPUSCULAR HEMOGLOB 33.7 pg (26.0-34.0); MEAN CORPUSCULAR VOLUME 97.2 fL (80-100); MEAN PLATELET VOLUME 11.6 fL (9.2-13.0); NUCLEATED RED BLOOD CELLS 0.8 /100WBC (0-0); PLATELET COUNT 63 10/3/uL (150-400); RED CELL COUNT 2.52 10/6/uL (4.7-6.1); WHITE BLOOD CELLS 7.1 10/3/uL (4.5-10.5)
[2016-08-21 04:32] LABS: MANUAL DIFF YES %
[2016-08-21 04:36] LABS: ALBUMIN 2.9 G/DL (3.5-5.0); ALKALINE PHOSPHATASE 41 U/L (45-117); CHLORIDE, SERUM 100 MMOL/L (96-112); CO2 (CARBON DIOXIDE) 25 MMOL/L (24-34); GFR AFRICAN AMERICAN 8 ML/MIN (>=60); GFR NON AFRICAN AMERICAN 7 ML/MIN (>=60); GLUCOSE, SERUM 131 MG/DL (60-99); PHOSPHORUS, SERUM 3.4 MG/DL (2.5-4.5); POTASSIUM, SERUM 4.1 MMOL/L (3.5-5.3); SGOT(AST) 44 U/L (5-40); SGPT(ALT) 16 U/L (5-65); SODIUM, SERUM 141 MMOL/L (135-148); TOTAL BILIRUBIN 0.8 MG/DL (0-1.2); TOTAL PROTEIN 5.9 G/DL (6.0-8.5)
[2016-08-21 04:44] LABS: BUN (BLOOD UREA NITROGEN) 45 MG/DL (6-23); CREATININE 7.38 MG/DL (0.70-1.30)
[2016-08-21 04:48] LABS: ANISOCYTOSIS 1+ (5-10/OIF) (0-5/OIF); BAND NEUTROPHILS 4 %; LYMPHOCYTES 5 %; LYMPHOCYTES ABSOLUTE (CALC) 0.36 10/3/uL (0.67-4.30); MONOCYTES 3 %; MONOCYTES ABSOLUTE (CALC) 0.21 10/3/uL (0.21-1.20); NEUTROPHILS ABSOLUTE (CALC) 6.53 10/3/uL (2.02-8.40); PLATELET ESTIMATE DEC (ADEQUATE); SEGMENTED NEUTROPHIL (0) 88 %; TOTAL NUCLEATED CELLS 100
[2016-08-21 10:51] LABS: HEMOGLOBIN 8.1 g/dL (13.6-17.8); MEAN CORPUS HGB CONC 33.8 g/dL (32.0-36.0); MEAN CORPUSCULAR HEMOGLOB 33.3 pg (26.0-34.0); MEAN CORPUSCULAR VOLUME 98.8 fL (80-100); MEAN PLATELET VOLUME 10.9 fL (9.2-13.0); NUCLEATED RED BLOOD CELLS 1.1 /100WBC (0-0); PLATELET COUNT 51 10/3/uL (150-400); RBC DISTRIBUTION WIDTH 17.9 % (12.0-16.0); RED CELL COUNT 2.43 10/6/uL (4.7-6.1); WHITE BLOOD CELLS 6.3 10/3/uL (4.5-10.5)
[2016-08-21 10:52] LABS: A/G RATIO 0.9 (0.7-1.9); ALBUMIN 2.7 G/DL (3.5-5.0); ALKALINE PHOSPHATASE 36 U/L (45-117); CALCIUM, SERUM 9.9 MG/DL (8.5-10.4); CHLORIDE, SERUM 99 MMOL/L (96-112); CO2 (CARBON DIOXIDE) 23 MMOL/L (24-34); GFR AFRICAN AMERICAN 9 ML/MIN (>=60); GFR NON AFRICAN AMERICAN 8 ML/MIN (>=60); GLUCOSE, SERUM 138 MG/DL (60-99); POTASSIUM, SERUM 3.9 MMOL/L (3.5-5.3); SGOT(AST) 37 U/L (5-40); SGPT(ALT) 15 U/L (5-65); SODIUM, SERUM 139 MMOL/L (135-148); TOTAL BILIRUBIN 0.6 MG/DL (0-1.2); TOTAL PROTEIN 5.7 G/DL (6.0-8.5)
[2016-08-21 10:53] LABS: BUN (BLOOD UREA NITROGEN) 40 MG/DL (6-23); CREATININE 6.22 MG/DL (0.70-1.30)
[2016-08-21 10:56] LABS: MANUAL DIFF YES %
[2016-08-21 12:02] LABS: ANISOCYTOSIS 1+ (5-10/OIF) (0-5/OIF); BAND NEUTROPHILS 7 %; LYMPHOCYTES 12 %; LYMPHOCYTES ABSOLUTE (CALC) 0.76 10/3/uL (0.67-4.30); MONOCYTES 4 %; MONOCYTES ABSOLUTE (CALC) 0.25 10/3/uL (0.21-1.20); NEUTROPHILS ABSOLUTE (CALC) 5.29 10/3/uL (2.02-8.40); PLATELET ESTIMATE DEC (ADEQUATE); SEGMENTED NEUTROPHIL (0) 77 %; TOTAL NUCLEATED CELLS 100
[2016-08-21 12:03] LABS: OVALOCYTES 1+ (3-10/OIF) (0-2/OIF); TOXIC GRANULATION 1+
[2016-08-21 16:45] LABS: HEMATOCRIT 25.2 % (40.0-51.0); HEMOGLOBIN 8.6 g/dL (13.6-17.8); MEAN CORPUS HGB CONC 34.1 g/dL (32.0-36.0); MEAN CORPUSCULAR HEMOGLOB 33.3 pg (26.0-34.0); MEAN CORPUSCULAR VOLUME 97.7 fL (80-100); MEAN PLATELET VOLUME 11.3 fL (9.2-13.0); PLATELET COUNT 52 10/3/uL (150-400); RBC DISTRIBUTION WIDTH 17.9 % (12.0-16.0); RED CELL COUNT 2.58 10/6/uL (4.7-6.1); WHITE BLOOD CELLS 5.5 10/3/uL (4.5-10.5)
[2016-08-21 16:47] LABS: MANUAL DIFF YES %
[2016-08-21 17:01] LABS: A/G RATIO 0.9 (0.7-1.9); ALBUMIN 2.7 G/DL (3.5-5.0); ALKALINE PHOSPHATASE 38 U/L (45-117); CALCIUM, SERUM 10.5 MG/DL (8.5-10.4); CHLORIDE, SERUM 99 MMOL/L (96-112); CO2 (CARBON DIOXIDE) 24 MMOL/L (24-34); GFR AFRICAN AMERICAN 11 ML/MIN (>=60); GFR NON AFRICAN AMERICAN 10 ML/MIN (>=60); GLUCOSE, SERUM 131 MG/DL (60-99); PHOSPHORUS, SERUM 3.2 MG/DL (2.5-4.5); POTASSIUM, SERUM 4.2 MMOL/L (3.5-5.3); SGOT(AST) 38 U/L (5-40); SGPT(ALT) 15 U/L (5-65); SODIUM, SERUM 140 MMOL/L (135-148); TOTAL BILIRUBIN 0.5 MG/DL (0-1.2); TOTAL PROTEIN 5.7 G/DL (6.0-8.5)
[2016-08-21 17:02] LABS: BUN (BLOOD UREA NITROGEN) 34 MG/DL (6-23); CREATININE 5.44 MG/DL (0.70-1.30)
[2016-08-21 17:04] LABS: TROPONIN I 0.28 NG/ML (<0.05)
[2016-08-21 17:21] LABS: ANISOCYTOSIS 1+ (5-10/OIF) (0-5/OIF); LYMPHOCYTES 7 %; LYMPHOCYTES ABSOLUTE (CALC) 0.39 10/3/uL (0.67-4.30); NEUTROPHILS ABSOLUTE (CALC) 5.12 10/3/uL (2.02-8.40); PLATELET ESTIMATE DEC (ADEQUATE); POIKILOCYTOSIS 1+ (5-10/OIF) (0-5/OIF); SEGMENTED NEUTROPHIL (0) 93 %; TOTAL NUCLEATED CELLS 100; TOXIC GRANULATION 1+
[2016-08-21 22:20] LABS: BASOPHILS 0 %; EOSINOPHILS 0 %; HEMATOCRIT 25.1 % (40.0-51.0); HEMOGLOBIN 8.7 g/dL (13.6-17.8); IMMATURE GRANULOCYTES 0.5 %; IMMATURE GRANULOCYTES ABSOLUTE 0.03 10/3/uL (0.0-0.11); LYMPHOCYTES 10.1 %; LYMPHOCYTES ABSOLUTE 0.61 10/3/uL (0.67-4.30); MANUAL DIFF NO %; MEAN CORPUS HGB CONC 34.7 g/dL (32.0-36.0); MEAN CORPUSCULAR HEMOGLOB 33.7 pg (26.0-34.0); MEAN CORPUSCULAR VOLUME 97.3 fL (80-100); MEAN PLATELET VOLUME 10.7 fL (9.2-13.0); MONOCYTES 5.2 %; MONOCYTES ABSOLUTE 0.31 10/3/uL (0.21-1.20); NEUTROPHILS 84.2 %; NEUTROPHILS ABSOLUTE 5.06 10/3/uL (2.02-8.40); PLATELET COUNT 54 10/3/uL (150-400); RBC DISTRIBUTION WIDTH 17.7 % (12.0-16.0); RED CELL COUNT 2.58 10/6/uL (4.7-6.1)
[2016-08-21 22:39] LABS: A/G RATIO 0.9 (0.7-1.9); ALBUMIN 2.8 G/DL (3.5-5.0); ALKALINE PHOSPHATASE 40 U/L (45-117); CALCIUM, SERUM 10.7 MG/DL (8.5-10.4); CHLORIDE, SERUM 98 MMOL/L (96-112); CO2 (CARBON DIOXIDE) 24 MMOL/L (24-34); GLUCOSE, SERUM 122 MG/DL (60-99); PHOSPHORUS, SERUM 2.9 MG/DL (2.5-4.5); POTASSIUM, SERUM 4.1 MMOL/L (3.5-5.3); SGOT(AST) 36 U/L (5-40); SGPT(ALT) 16 U/L (5-65); SODIUM, SERUM 138 MMOL/L (135-148); TOTAL BILIRUBIN 0.6 MG/DL (0-1.2); TOTAL PROTEIN 5.8 G/DL (6.0-8.5)
[2016-08-21 22:41] LABS: BUN (BLOOD UREA NITROGEN) 29 MG/DL (6-23); CREATININE 4.74 MG/DL (0.70-1.30); GFR AFRICAN AMERICAN 13 ML/MIN (>=60); GFR NON AFRICAN AMERICAN 11 ML/MIN (>=60); TROPONIN I 0.31 NG/ML (<0.05)
[2016-08-22 04:13] LABS: BASOPHILS 0 %; EOSINOPHILS 0.1 %; EOSINOPHILS ABSOLUTE 0.01 10/3/uL (0.0-0.53); HEMATOCRIT 25.3 % (40.0-51.0); HEMOGLOBIN 8.6 g/dL (13.6-17.8); IMMATURE GRANULOCYTES 0.4 %; IMMATURE GRANULOCYTES ABSOLUTE 0.03 10/3/uL (0.0-0.11); LYMPHOCYTES 9.2 %; LYMPHOCYTES ABSOLUTE 0.63 10/3/uL (0.67-4.30); MANUAL DIFF NO %; MEAN CORPUSCULAR HEMOGLOB 33.9 pg (26.0-34.0); MEAN CORPUSCULAR VOLUME 99.6 fL (80-100); MEAN PLATELET VOLUME 11.4 fL (9.2-13.0); MONOCYTES 3.6 %; MONOCYTES ABSOLUTE 0.25 10/3/uL (0.21-1.20); NEUTROPHILS 86.7 %; NEUTROPHILS ABSOLUTE 5.93 10/3/uL (2.02-8.40); PLATELET COUNT 53 10/3/uL (150-400); RBC DISTRIBUTION WIDTH 17.4 % (12.0-16.0); RED CELL COUNT 2.54 10/6/uL (4.7-6.1); WHITE BLOOD CELLS 6.9 10/3/uL (4.5-10.5)
[2016-08-22 04:33] LABS: ALBUMIN 2.9 G/DL (3.5-5.0); ALKALINE PHOSPHATASE 42 U/L (45-117); CALCIUM, SERUM 11.6 MG/DL (8.5-10.4); CHLORIDE, SERUM 98 MMOL/L (96-112); CO2 (CARBON DIOXIDE) 24 MMOL/L (24-34); GLUCOSE, SERUM 118 MG/DL (60-99); PHOSPHORUS, SERUM 2.6 MG/DL (2.5-4.5); POTASSIUM, SERUM 3.9 MMOL/L (3.5-5.3); SGOT(AST) 35 U/L (5-40); SGPT(ALT) 17 U/L (5-65); SODIUM, SERUM 137 MMOL/L (135-148); TOTAL BILIRUBIN 0.6 MG/DL (0-1.2); TOTAL PROTEIN 5.9 G/DL (6.0-8.5)
[2016-08-22 04:35] LABS: BUN (BLOOD UREA NITROGEN) 25 MG/DL (6-23); CREATININE 4.07 MG/DL (0.70-1.30); GFR AFRICAN AMERICAN 16 ML/MIN (>=60); GFR NON AFRICAN AMERICAN 14 ML/MIN (>=60); TROPONIN I 0.31 NG/ML (<0.05)
[2016-08-22 04:38] LABS: B NATRIURETIC PEPTIDE (BNP) 972.2 PG/ML (< 100.0)
[2016-08-22 04:55] LABS: ALLENS TEST Pos; BE (BASE EXCESS) -1.9 MEQ/L (0 +/- 2.5); BIPAP i16/e5 cm.H2O; CARBOXYHEMOGLOBIN 0.3 % (0-3); HCO3 (ACTUAL BICARBONATE) 20.6 MEQ/L (23-27); HEMOBLOGIN CONTENT 8.5 G/DL (14-18); INSTRUMENT SERIAL # 8083; METHEMOGLOBIN 0.3 % (0-3); O2 CONTENT 12.1 VOL% (18-24); PCO2 (CO2 TENSION) 27 MMHG (35-45); PO2 (O2 TENSION) 175 MMHG (79-93); SAMPLE Arterial
[2016-08-22 05:30] LABS: CALCIUM IONIZED 5.09 MG/DL (3.80-4.80)
[2016-08-22 05:36] LABS: PROCALCITONIN 1.53 ng/mL (<0.5)
[2016-08-22 05:51] LABS: TEARDROP SHAPED RBCS OCC (0-2/OIF)
[2016-08-22 05:52] LABS: ANISOCYTOSIS 1+ (5-10/OIF) (0-5/OIF)
[2016-08-22 05:58] LABS: PLATELET ESTIMATE DEC (ADEQUATE)
[2016-08-22 09:52] LABS: BASOPHILS 0 %; EOSINOPHILS 0 %; HEMATOCRIT 25.2 % (40.0-51.0); HEMOGLOBIN 8.8 g/dL (13.6-17.8); IMMATURE GRANULOCYTES 0.7 %; IMMATURE GRANULOCYTES ABSOLUTE 0.04 10/3/uL (0.0-0.11); LYMPHOCYTES 9.3 %; LYMPHOCYTES ABSOLUTE 0.57 10/3/uL (0.67-4.30); MEAN CORPUS HGB CONC 34.9 g/dL (32.0-36.0); MEAN CORPUSCULAR HEMOGLOB 34.1 pg (26.0-34.0); MEAN CORPUSCULAR VOLUME 97.7 fL (80-100); MEAN PLATELET VOLUME 11.4 fL (9.2-13.0); MONOCYTES 3.4 %; MONOCYTES ABSOLUTE 0.21 10/3/uL (0.21-1.20); NEUTROPHILS 86.6 %; NEUTROPHILS ABSOLUTE 5.33 10/3/uL (2.02-8.40); RBC DISTRIBUTION WIDTH 17.5 % (12.0-16.0); RED CELL COUNT 2.58 10/6/uL (4.7-6.1); WHITE BLOOD CELLS 6.2 10/3/uL (4.5-10.5)
[2016-08-22 09:55] LABS: PLATELET COUNT 51 10/3/uL (150-400)
[2016-08-22 09:56] LABS: MANUAL DIFF NO %
[2016-08-22 10:02] LABS: BUN (BLOOD UREA NITROGEN) 24 MG/DL (6-23); CALCIUM, SERUM 10.7 MG/DL (8.5-10.4); CHLORIDE, SERUM 97 MMOL/L (96-112); CO2 (CARBON DIOXIDE) 23 MMOL/L (24-34); CREATININE 3.61 MG/DL (0.70-1.30); GFR AFRICAN AMERICAN 18 ML/MIN (>=60); GFR NON AFRICAN AMERICAN 16 ML/MIN (>=60); POTASSIUM, SERUM 4.1 MMOL/L (3.5-5.3); SODIUM, SERUM 138 MMOL/L (135-148)
[2016-08-22 10:04] LABS: GLUCOSE, SERUM 172 MG/DL (60-99)
[2016-08-22 10:16] LABS: ANISOCYTOSIS 1+ (5-10/OIF) (0-5/OIF); PLATELET ESTIMATE DEC (ADEQUATE)
[2016-08-22 10:57] LABS: SMEAR FOR ABNORMAL CELLS SEE PATHOLOGY REPORT
[2016-08-22 16:00] LABS: BASOPHILS 0 %; EOSINOPHILS 0 %; HEMATOCRIT 22.7 % (40.0-51.0); HEMOGLOBIN 7.9 g/dL (13.6-17.8); IMMATURE GRANULOCYTES 0.6 %; IMMATURE GRANULOCYTES ABSOLUTE 0.03 10/3/uL (0.0-0.11); LYMPHOCYTES 10.9 %; LYMPHOCYTES ABSOLUTE 0.57 10/3/uL (0.67-4.30); MEAN CORPUS HGB CONC 34.8 g/dL (32.0-36.0); MEAN CORPUSCULAR HEMOGLOB 34.1 pg (26.0-34.0); MEAN CORPUSCULAR VOLUME 97.8 fL (80-100); MEAN PLATELET VOLUME 11.5 fL (9.2-13.0); MONOCYTES 4.2 %; MONOCYTES ABSOLUTE 0.22 10/3/uL (0.21-1.20); NEUTROPHILS 84.3 %; NEUTROPHILS ABSOLUTE 4.39 10/3/uL (2.02-8.40); RBC DISTRIBUTION WIDTH 17.4 % (12.0-16.0); RED CELL COUNT 2.32 10/6/uL (4.7-6.1); WHITE BLOOD CELLS 5.2 10/3/uL (4.5-10.5)
[2016-08-22 16:01] LABS: MANUAL DIFF NO %
[2016-08-22 16:12] LABS: CHLORIDE, SERUM 98 MMOL/L (96-112); CO2 (CARBON DIOXIDE) 27 MMOL/L (24-34); GLUCOSE, SERUM 159 MG/DL (60-99); PHOSPHORUS, SERUM 2.1 MG/DL (2.5-4.5); POTASSIUM, SERUM 3.8 MMOL/L (3.5-5.3); SODIUM, SERUM 138 MMOL/L (135-148)
[2016-08-22 16:16] LABS: BUN (BLOOD UREA NITROGEN) 20 MG/DL (6-23); CALCIUM, SERUM 9.7 MG/DL (8.5-10.4); CREATININE 3.11 MG/DL (0.70-1.30); GFR AFRICAN AMERICAN 22 ML/MIN (>=60); GFR NON AFRICAN AMERICAN 19 ML/MIN (>=60)
[2016-08-22 17:35] LABS: ANISOCYTOSIS 1+ (5-10/OIF) (0-5/OIF)
[2016-08-22 17:36] LABS: BURR CELLS 1+ (3-10/OIF) (0-2/OIF); MACROCYTES 1+ (5-10/OIF) (0-5/OIF); MICROCYTES 1+ (5-10/OIF) (0-5/OIF); OVALOCYTES 1+ (3-10/OIF) (0-2/OIF); TEARDROP SHAPED RBCS OCC (0-2/OIF)
[2016-08-22 17:38] LABS: BASOPHILIC STIPPLING 1+ (2-5/OIF) (0-1/OIF)
[2016-08-22 17:39] LABS: PLATELET COUNT 44 10/3/uL (150-400)
[2016-08-22 22:32] LABS: BASOPHILS 0.2 %; BASOPHILS ABSOLUTE 0.01 10/3/uL (0.0-0.16); EOSINOPHILS 0.2 %; EOSINOPHILS ABSOLUTE 0.01 10/3/uL (0.0-0.53); HEMATOCRIT 23.3 % (40.0-51.0); HEMOGLOBIN 7.9 g/dL (13.6-17.8); IMMATURE GRANULOCYTES 0.8 %; IMMATURE GRANULOCYTES ABSOLUTE 0.05 10/3/uL (0.0-0.11); LYMPHOCYTES 8.7 %; LYMPHOCYTES ABSOLUTE 0.53 10/3/uL (0.67-4.30); MEAN CORPUS HGB CONC 33.9 g/dL (32.0-36.0); MEAN CORPUSCULAR HEMOGLOB 33.5 pg (26.0-34.0); MEAN CORPUSCULAR VOLUME 98.7 fL (80-100); MEAN PLATELET VOLUME 11.8 fL (9.2-13.0); MONOCYTES 7.2 %; MONOCYTES ABSOLUTE 0.44 10/3/uL (0.21-1.20); NEUTROPHILS 82.9 %; NEUTROPHILS ABSOLUTE 5.06 10/3/uL (2.02-8.40); PLATELET COUNT 50 10/3/uL (150-400); RBC DISTRIBUTION WIDTH 17.3 % (12.0-16.0); RED CELL COUNT 2.36 10/6/uL (4.7-6.1); WHITE BLOOD CELLS 6.1 10/3/uL (4.5-10.5)
[2016-08-22 22:34] LABS: MANUAL DIFF NO %
[2016-08-22 22:45] LABS: BUN (BLOOD UREA NITROGEN) 16 MG/DL (6-23); CALCIUM, SERUM 9.1 MG/DL (8.5-10.4); CHLORIDE, SERUM 98 MMOL/L (96-112); CO2 (CARBON DIOXIDE) 25 MMOL/L (24-34); CREATININE 2.67 MG/DL (0.70-1.30); GFR AFRICAN AMERICAN 26 ML/MIN (>=60); GFR NON AFRICAN AMERICAN 23 ML/MIN (>=60); GLUCOSE, SERUM 140 MG/DL (60-99); POTASSIUM, SERUM 3.8 MMOL/L (3.5-5.3); SODIUM, SERUM 138 MMOL/L (135-148)
[2016-08-22 23:06] LABS: ANISOCYTOSIS 1+ (5-10/OIF) (0-5/OIF); MACROCYTES 1+ (5-10/OIF) (0-5/OIF); MICROCYTES 1+ (5-10/OIF) (0-5/OIF); TEARDROP SHAPED RBCS OCC (0-2/OIF)
[2016-08-23 03:52] LABS: ALLENS TEST Pos; BE (BASE EXCESS) -1.7 MEQ/L (0 +/- 2.5); CARBOXYHEMOGLOBIN 0.3 % (0-3); DEVICE NC; HEMOBLOGIN CONTENT 9.2 G/DL (14-18); INSTRUMENT SERIAL # 8083; METHEMOGLOBIN 0.3 % (0-3); O2 CONTENT 12.7 VOL% (18-24); OPERATOR ID 17370; PCO2 (CO2 TENSION) 33 MMHG (35-45); PO2 (O2 TENSION) 112 MMHG (79-93); SAMPLE Arterial; pH 7.44 (7.37-7.43)
[2016-08-23 04:22] LABS: BASOPHILS 0.2 %; BASOPHILS ABSOLUTE 0.01 10/3/uL (0.0-0.16); EOSINOPHILS 0.2 %; EOSINOPHILS ABSOLUTE 0.01 10/3/uL (0.0-0.53); HEMATOCRIT 23.8 % (40.0-51.0); HEMOGLOBIN 8.2 g/dL (13.6-17.8); IMMATURE GRANULOCYTES 0.6 %; IMMATURE GRANULOCYTES ABSOLUTE 0.04 10/3/uL (0.0-0.11); LYMPHOCYTES 12.1 %; LYMPHOCYTES ABSOLUTE 0.78 10/3/uL (0.67-4.30); MEAN CORPUS HGB CONC 34.5 g/dL (32.0-36.0); MEAN CORPUSCULAR HEMOGLOB 34.7 pg (26.0-34.0); MEAN CORPUSCULAR VOLUME 100.8 fL (80-100); MONOCYTES 4.4 %; MONOCYTES ABSOLUTE 0.28 10/3/uL (0.21-1.20); NEUTROPHILS 82.5 %; PLATELET COUNT 50 10/3/uL (150-400); RBC DISTRIBUTION WIDTH 17.2 % (12.0-16.0); RED CELL COUNT 2.36 10/6/uL (4.7-6.1); WHITE BLOOD CELLS 6.4 10/3/uL (4.5-10.5)
[2016-08-23 04:23] LABS: MANUAL DIFF NO %
[2016-08-23 04:53] LABS: A/G RATIO 1.2 (0.7-1.9); ALBUMIN 3.2 G/DL (3.5-5.0); ALKALINE PHOSPHATASE 37 U/L (45-117); BUN (BLOOD UREA NITROGEN) 14 MG/DL (6-23); CALCIUM, SERUM 8.7 MG/DL (8.5-10.4); CHLORIDE, SERUM 99 MMOL/L (96-112); CO2 (CARBON DIOXIDE) 25 MMOL/L (24-34); GFR AFRICAN AMERICAN 31 ML/MIN (>=60); GFR NON AFRICAN AMERICAN 27 ML/MIN (>=60); GLOBULIN 2.7 G/DL (2.5-4.1); GLUCOSE, SERUM 138 MG/DL (60-99); PHOSPHORUS, SERUM 1.9 MG/DL (2.5-4.5); SGOT(AST) 28 U/L (5-40); SGPT(ALT) 17 U/L (5-65); SODIUM, SERUM 139 MMOL/L (135-148); TOTAL BILIRUBIN 1.1 MG/DL (0-1.2); TOTAL PROTEIN 5.9 G/DL (6.0-8.5)
[2016-08-23 10:31] LABS: BASOPHILS 0 %; EOSINOPHILS 0.7 %; EOSINOPHILS ABSOLUTE 0.04 10/3/uL (0.0-0.53); HEMATOCRIT 24.3 % (40.0-51.0); HEMOGLOBIN 8.1 g/dL (13.6-17.8); IMMATURE GRANULOCYTES 0.7 %; IMMATURE GRANULOCYTES ABSOLUTE 0.04 10/3/uL (0.0-0.11); LYMPHOCYTES 13.1 %; LYMPHOCYTES ABSOLUTE 0.79 10/3/uL (0.67-4.30); MEAN CORPUS HGB CONC 33.3 g/dL (32.0-36.0); MEAN CORPUSCULAR HEMOGLOB 33.5 pg (26.0-34.0); MEAN CORPUSCULAR VOLUME 100.4 fL (80-100); MEAN PLATELET VOLUME 11.9 fL (9.2-13.0); MONOCYTES 4.3 %; MONOCYTES ABSOLUTE 0.26 10/3/uL (0.21-1.20); NEUTROPHILS 81.2 %; NUCLEATED RED BLOOD CELLS 2.4 /100WBC (0-0); RBC DISTRIBUTION WIDTH 17.1 % (12.0-16.0); RED CELL COUNT 2.42 10/6/uL (4.7-6.1)
[2016-08-23 10:37] LABS: MANUAL DIFF NO %; PLATELET COUNT 48 10/3/uL (150-400)
[2016-08-23 10:39] LABS: BUN (BLOOD UREA NITROGEN) 12 MG/DL (6-23); CALCIUM, SERUM 8.6 MG/DL (8.5-10.4); CHLORIDE, SERUM 98 MMOL/L (96-112); CO2 (CARBON DIOXIDE) 23 MMOL/L (24-34); CREATININE 2.07 MG/DL (0.70-1.30); GFR AFRICAN AMERICAN 36 ML/MIN (>=60); GFR NON AFRICAN AMERICAN 31 ML/MIN (>=60); POTASSIUM, SERUM 3.9 MMOL/L (3.5-5.3); SODIUM, SERUM 138 MMOL/L (135-148)
[2016-08-23 10:40] LABS: GLUCOSE, SERUM 179 MG/DL (60-99)
[2016-08-23 10:52] LABS: ANISOCYTOSIS 1+ (5-10/OIF) (0-5/OIF); MACROCYTES 1+ (5-10/OIF) (0-5/OIF)
[2016-08-23 16:11] LABS: BASOPHILS 0.2 %; BASOPHILS ABSOLUTE 0.01 10/3/uL (0.0-0.16); EOSINOPHILS 0.2 %; EOSINOPHILS ABSOLUTE 0.01 10/3/uL (0.0-0.53); HEMATOCRIT 24.9 % (40.0-51.0); HEMOGLOBIN 8.2 g/dL (13.6-17.8); IMMATURE GRANULOCYTES 1.2 %; IMMATURE GRANULOCYTES ABSOLUTE 0.07 10/3/uL (0.0-0.11); LYMPHOCYTES 8.7 %; MEAN CORPUS HGB CONC 32.9 g/dL (32.0-36.0); MEAN CORPUSCULAR HEMOGLOB 32.8 pg (26.0-34.0); MEAN CORPUSCULAR VOLUME 99.6 fL (80-100); MEAN PLATELET VOLUME 11.5 fL (9.2-13.0); MONOCYTES 4.7 %; MONOCYTES ABSOLUTE 0.27 10/3/uL (0.21-1.20); NEUTROPHILS ABSOLUTE 4.88 10/3/uL (2.02-8.40); NUCLEATED RED BLOOD CELLS 2.5 /100WBC (0-0); WHITE BLOOD CELLS 5.7 10/3/uL (4.5-10.5)
[2016-08-23 16:16] LABS: MANUAL DIFF NO %; PLATELET COUNT 43 10/3/uL (150-400)
[2016-08-23 16:19] LABS: BUN (BLOOD UREA NITROGEN) 11 MG/DL (6-23); CALCIUM, SERUM 8.6 MG/DL (8.5-10.4); CHLORIDE, SERUM 98 MMOL/L (96-112); CO2 (CARBON DIOXIDE) 24 MMOL/L (24-34); CREATININE 1.93 MG/DL (0.70-1.30); GFR AFRICAN AMERICAN 39 ML/MIN (>=60); GFR NON AFRICAN AMERICAN 34 ML/MIN (>=60); GLUCOSE, SERUM 162 MG/DL (60-99); SODIUM, SERUM 137 MMOL/L (135-148)
[2016-08-23 16:20] LABS: PHOSPHORUS, SERUM 2.6 MG/DL (2.5-4.5)
[2016-08-23 17:33] LABS: ANISOCYTOSIS 1+ (5-10/OIF) (0-5/OIF)
[2016-08-23 23:33] LABS: BASOPHILS 0.2 %; BASOPHILS ABSOLUTE 0.01 10/3/uL (0.0-0.16); BUN (BLOOD UREA NITROGEN) 11 MG/DL (6-23); CALCIUM, SERUM 8.5 MG/DL (8.5-10.4); CHLORIDE, SERUM 98 MMOL/L (96-112); CO2 (CARBON DIOXIDE) 26 MMOL/L (24-34); CREATININE 1.93 MG/DL (0.70-1.30); EOSINOPHILS 0.5 %; EOSINOPHILS ABSOLUTE 0.03 10/3/uL (0.0-0.53); GFR AFRICAN AMERICAN 39 ML/MIN (>=60); GFR NON AFRICAN AMERICAN 34 ML/MIN (>=60); GLUCOSE, SERUM 154 MG/DL (60-99); HEMATOCRIT 24.5 % (40.0-51.0); HEMOGLOBIN 8.1 g/dL (13.6-17.8); IMMATURE GRANULOCYTES 0.8 %; IMMATURE GRANULOCYTES ABSOLUTE 0.05 10/3/uL (0.0-0.11); LYMPHOCYTES 16.7 %; LYMPHOCYTES ABSOLUTE 1.02 10/3/uL (0.67-4.30); MEAN CORPUS HGB CONC 33.1 g/dL (32.0-36.0); MEAN CORPUSCULAR HEMOGLOB 32.9 pg (26.0-34.0); MEAN CORPUSCULAR VOLUME 99.6 fL (80-100); MEAN PLATELET VOLUME 11.8 fL (9.2-13.0); MONOCYTES 5.3 %; MONOCYTES ABSOLUTE 0.32 10/3/uL (0.21-1.20); NEUTROPHILS 76.5 %; NEUTROPHILS ABSOLUTE 4.66 10/3/uL (2.02-8.40); NUCLEATED RED BLOOD CELLS 2.3 /100WBC (0-0); POTASSIUM, SERUM 3.8 MMOL/L (3.5-5.3); RBC DISTRIBUTION WIDTH 16.8 % (12.0-16.0); RED CELL COUNT 2.46 10/6/uL (4.7-6.1); SODIUM, SERUM 138 MMOL/L (135-148); WHITE BLOOD CELLS 6.1 10/3/uL (4.5-10.5)
[2016-08-23 23:34] LABS: MANUAL DIFF NO %; PLATELET COUNT 45 10/3/uL (150-400)
[2016-08-23 23:55] LABS: ELLIPTOCYTES 1+ (3-10/OIF) (0-2/OIF); OVALOCYTES 1+ (3-10/OIF) (0-2/OIF); PLATELET ESTIMATE DEC (ADEQUATE); POIKILOCYTOSIS 1+ (5-10/OIF) (0-5/OIF); SCHISTOCYTES FEW (3-10/OIF)
[2016-08-24 04:57] LABS: A/G RATIO 1.2 (0.7-1.9); ALBUMIN 3.1 G/DL (3.5-5.0); BUN (BLOOD UREA NITROGEN) 8 MG/DL (6-23); CALCIUM, SERUM 9.4 MG/DL (8.5-10.4); CHLORIDE, SERUM 97 MMOL/L (96-112); CREATININE 1.79 MG/DL (0.70-1.30); GFR AFRICAN AMERICAN 43 ML/MIN (>=60); GFR NON AFRICAN AMERICAN 37 ML/MIN (>=60); GLOBULIN 2.5 G/DL (2.5-4.1); PHOSPHORUS, SERUM 2.9 MG/DL (2.5-4.5); POTASSIUM, SERUM 4.2 MMOL/L (3.5-5.3); SGOT(AST) 737 U/L (5-40); SGPT(ALT) 240 U/L (5-65); SODIUM, SERUM 134 MMOL/L (135-148); TOTAL BILIRUBIN 1.4 MG/DL (0-1.2); TOTAL PROTEIN 5.6 G/DL (6.0-8.5)
[2016-08-24 04:59] LABS: ALKALINE PHOSPHATASE 49 U/L (45-117); CO2 (CARBON DIOXIDE) 19 MMOL/L (24-34); GLUCOSE, SERUM 248 MG/DL (60-99)
[2016-08-24 05:14] LABS: HEMATOCRIT 25.7 % (40.0-51.0); HEMOGLOBIN 8.6 g/dL (13.6-17.8); MEAN CORPUS HGB CONC 33.5 g/dL (32.0-36.0); MEAN CORPUSCULAR HEMOGLOB 33.6 pg (26.0-34.0); MEAN CORPUSCULAR VOLUME 100.4 fL (80-100); MEAN PLATELET VOLUME 12.5 fL (9.2-13.0); NUCLEATED RED BLOOD CELLS 2.2 /100WBC (0-0); RBC DISTRIBUTION WIDTH 17.2 % (12.0-16.0); RED CELL COUNT 2.56 10/6/uL (4.7-6.1); WHITE BLOOD CELLS 6.6 10/3/uL (4.5-10.5)
[2016-08-24 05:19] LABS: MANUAL DIFF YES %; PLATELET COUNT 47 10/3/uL (150-400)
[2016-08-24 05:45] LABS: ANISOCYTOSIS 1+ (5-10/OIF) (0-5/OIF); BAND NEUTROPHILS 2 %; IMMATURE GRANS ABSOLUTE (CALC) 0.07 10/3/uL (0.0-0.11); LYMPHOCYTES 22 %; LYMPHOCYTES ABSOLUTE (CALC) 1.45 10/3/uL (0.67-4.30); MACROCYTES 1+ (5-10/OIF) (0-5/OIF); METAMYELOCYTES 1 %; MONOCYTES 5 %; MONOCYTES ABSOLUTE (CALC) 0.33 10/3/uL (0.21-1.20); NEUTROPHILS ABSOLUTE (CALC) 4.75 10/3/uL (2.02-8.40); PLATELET ESTIMATE DEC (ADEQUATE); SEGMENTED NEUTROPHIL (0) 70 %; TOTAL NUCLEATED CELLS 100
[2016-08-24 10:12] LABS: HEMATOCRIT 26.8 % (40.0-51.0); HEMOGLOBIN 9.2 g/dL (13.6-17.8); MEAN CORPUS HGB CONC 34.3 g/dL (32.0-36.0); MEAN CORPUSCULAR HEMOGLOB 34.3 pg (26.0-34.0); MEAN PLATELET VOLUME 12.7 fL (9.2-13.0); NUCLEATED RED BLOOD CELLS 6.1 /100WBC (0-0); RBC DISTRIBUTION WIDTH 17.3 % (12.0-16.0); RED CELL COUNT 2.68 10/6/uL (4.7-6.1); WHITE BLOOD CELLS 6.5 10/3/uL (4.5-10.5)
[2016-08-24 10:13] LABS: MANUAL DIFF YES %; PLATELET COUNT 46 10/3/uL (150-400)
[2016-08-24 10:26] LABS: BUN (BLOOD UREA NITROGEN) 8 MG/DL (6-23); CALCIUM, SERUM 9.6 MG/DL (8.5-10.4); CHLORIDE, SERUM 97 MMOL/L (96-112); CO2 (CARBON DIOXIDE) 18 MMOL/L (24-34); CREATININE 1.67 MG/DL (0.70-1.30); GFR AFRICAN AMERICAN 46 ML/MIN (>=60); GFR NON AFRICAN AMERICAN 40 ML/MIN (>=60); GLUCOSE, SERUM 151 MG/DL (60-99); POTASSIUM, SERUM 4.4 MMOL/L (3.5-5.3); SODIUM, SERUM 136 MMOL/L (135-148)
[2016-08-24 10:29] LABS: ANISOCYTOSIS 1+ (5-10/OIF) (0-5/OIF); LYMPHOCYTES 12 %; LYMPHOCYTES ABSOLUTE (CALC) 0.78 10/3/uL (0.67-4.30); MACROCYTES 1+ (5-10/OIF) (0-5/OIF); MONOCYTES 6 %; MONOCYTES ABSOLUTE (CALC) 0.39 10/3/uL (0.21-1.20); NEUTROPHILS ABSOLUTE (CALC) 5.33 10/3/uL (2.02-8.40); POLYCHROMASIA 1+ (2-5/OIF) (0-1/OIF); SEGMENTED NEUTROPHIL (0) 82 %; TOTAL NUCLEATED CELLS 100
[2016-08-24 11:13] LABS: ALLENS TEST Pos; BE (BASE EXCESS) -11.1 MEQ/L (0 +/- 2.5); CARBOXYHEMOGLOBIN 0.3 % (0-3); HCO3 (ACTUAL BICARBONATE) 14.7 MEQ/L (23-27); HEMOBLOGIN CONTENT 10.2 G/DL (14-18); INSTRUMENT SERIAL # 35151; METHEMOGLOBIN 0.2 % (0-3); MODE CMV; O2 CONTENT 14.2 VOL% (18-24); OPERATOR ID 14382; PCO2 (CO2 TENSION) 33 MMHG (35-45); PO2 (O2 TENSION) 135 MMHG (79-93); SAMPLE Arterial; TIDAL VOLUME 450 ML; pH 7.27 (7.37-7.43)
[2016-08-24 17:07] LABS: BASOPHILS 0.2 %; BASOPHILS ABSOLUTE 0.03 10/3/uL (0.0-0.16); EOSINOPHILS 0 %; HEMATOCRIT 28.4 % (40.0-51.0); HEMOGLOBIN 9.3 g/dL (13.6-17.8); IMMATURE GRANULOCYTES 1.1 %; IMMATURE GRANULOCYTES ABSOLUTE 0.14 10/3/uL (0.0-0.11); LYMPHOCYTES 3.4 %; LYMPHOCYTES ABSOLUTE 0.44 10/3/uL (0.67-4.30); MEAN CORPUS HGB CONC 32.7 g/dL (32.0-36.0); MEAN CORPUSCULAR HEMOGLOB 33.2 pg (26.0-34.0); MEAN CORPUSCULAR VOLUME 101.4 fL (80-100); MEAN PLATELET VOLUME 12.7 fL (9.2-13.0); MONOCYTES 7.4 %; MONOCYTES ABSOLUTE 0.96 10/3/uL (0.21-1.20); NEUTROPHILS 87.9 %; NEUTROPHILS ABSOLUTE 11.35 10/3/uL (2.02-8.40); NUCLEATED RED BLOOD CELLS 5.7 /100WBC (0-0); PLATELET COUNT 36 10/3/uL (150-400); RBC DISTRIBUTION WIDTH 17.1 % (12.0-16.0); WHITE BLOOD CELLS 12.9 10/3/uL (4.5-10.5)
[2016-08-24 17:08] LABS: MANUAL DIFF NO %
[2016-08-24 17:10] LABS: BUN (BLOOD UREA NITROGEN) 9 MG/DL (6-23); CALCIUM, SERUM 9.8 MG/DL (8.5-10.4); CHLORIDE, SERUM 96 MMOL/L (96-112); CO2 (CARBON DIOXIDE) 20 MMOL/L (24-34); GFR AFRICAN AMERICAN 49 ML/MIN (>=60); GFR NON AFRICAN AMERICAN 42 ML/MIN (>=60); PHOSPHORUS, SERUM 3.5 MG/DL (2.5-4.5); POTASSIUM, SERUM 4.4 MMOL/L (3.5-5.3); SODIUM, SERUM 137 MMOL/L (135-148)
[2016-08-24 17:11] LABS: GLUCOSE, SERUM 120 MG/DL (60-99)
[2016-08-24 18:49] LABS: ANISOCYTOSIS 1+ (5-10/OIF) (0-5/OIF); BURR CELLS 1+ (3-10/OIF) (0-2/OIF); MACROCYTES 1+ (5-10/OIF) (0-5/OIF)
[2016-08-24 21:43] LABS: HEMATOCRIT 26.8 % (40.0-51.0); MANUAL DIFF YES %; MEAN CORPUS HGB CONC 33.6 g/dL (32.0-36.0); MEAN CORPUSCULAR HEMOGLOB 34.2 pg (26.0-34.0); MEAN CORPUSCULAR VOLUME 101.9 fL (80-100); MEAN PLATELET VOLUME 12.7 fL (9.2-13.0); NUCLEATED RED BLOOD CELLS 5.7 /100WBC (0-0); PLATELET COUNT 36 10/3/uL (150-400); RBC DISTRIBUTION WIDTH 17.4 % (12.0-16.0); RED CELL COUNT 2.63 10/6/uL (4.7-6.1); WHITE BLOOD CELLS 13.9 10/3/uL (4.5-10.5)
[2016-08-24 21:54] LABS: BUN (BLOOD UREA NITROGEN) 10 MG/DL (6-23); CALCIUM, SERUM 9.9 MG/DL (8.5-10.4); CHLORIDE, SERUM 97 MMOL/L (96-112); CO2 (CARBON DIOXIDE) 17 MMOL/L (24-34); CREATININE 2.03 MG/DL (0.70-1.30); GFR AFRICAN AMERICAN 37 ML/MIN (>=60); GFR NON AFRICAN AMERICAN 32 ML/MIN (>=60); GLUCOSE, SERUM 109 MG/DL (60-99); POTASSIUM, SERUM 4.5 MMOL/L (3.5-5.3); SODIUM, SERUM 136 MMOL/L (135-148)
[2016-08-24 22:01] LABS: BAND NEUTROPHILS 1 %; IMMATURE GRANS ABSOLUTE (CALC) 0.14 10/3/uL (0.0-0.11); LYMPHOCYTES 2 %; LYMPHOCYTES ABSOLUTE (CALC) 0.28 10/3/uL (0.67-4.30); MACROCYTES 1+ (5-10/OIF) (0-5/OIF); METAMYELOCYTES 1 %; MONOCYTES 4 %; MONOCYTES ABSOLUTE (CALC) 0.56 10/3/uL (0.21-1.20); NEUTROPHILS ABSOLUTE (CALC) 12.93 10/3/uL (2.02-8.40); SEGMENTED NEUTROPHIL (0) 92 %; TOTAL NUCLEATED CELLS 100
[2016-08-24 22:02] LABS: ANISOCYTOSIS 1+ (5-10/OIF) (0-5/OIF)
[2016-08-24 22:17] LABS: BE (BASE EXCESS) -12.3 MEQ/L (0 +/- 2.5); CARBOXYHEMOGLOBIN 0.3 % (0-3); HCO3 (ACTUAL BICARBONATE) 14.5 MEQ/L (23-27); HEMOBLOGIN CONTENT 9.1 G/DL (14-18); INSTRUMENT SERIAL # 35151; METHEMOGLOBIN 0.3 % (0-3); MODE CMV; O2 CONTENT 10.8 VOL% (18-24); OPERATOR ID 13861; PCO2 (CO2 TENSION) 36 MMHG (35-45); PO2 (O2 TENSION) 61 MMHG (79-93); SAMPLE Arterial; TIDAL VOLUME 450 ML; pH 7.22 (7.37-7.43)
[2016-08-24 23:37] LABS: BE (BASE EXCESS) -8.2 MEQ/L (0 +/- 2.5); CARBOXYHEMOGLOBIN 0.3 % (0-3); HCO3 (ACTUAL BICARBONATE) 16.8 MEQ/L (23-27); HEMOBLOGIN CONTENT 8.9 G/DL (14-18); INSTRUMENT SERIAL # 35151; METHEMOGLOBIN 0.5 % (0-3); MODE CMV; O2 CONTENT 11.2 VOL% (18-24); OPERATOR ID 23712; PCO2 (CO2 TENSION) 33 MMHG (35-45); PO2 (O2 TENSION) 68 MMHG (79-93); SAMPLE Arterial; TIDAL VOLUME 450 ML; pH 7.33 (7.37-7.43)
[2016-08-25 00:10] LABS: TROPONIN I 4.68 NG/ML (<0.05)
[2016-08-25 00:28] LABS: CK-MB 12.7 NG/ML
[2016-08-25 03:28] LABS: BE (BASE EXCESS) -12.8 MEQ/L (0 +/- 2.5); CARBOXYHEMOGLOBIN 0.3 % (0-3); HCO3 (ACTUAL BICARBONATE) 13.7 MEQ/L (23-27); HEMOBLOGIN CONTENT 8.9 G/DL (14-18); INSTRUMENT SERIAL # 35151; METHEMOGLOBIN 0.3 % (0-3); MODE CMV; O2 CONTENT 12.4 VOL% (18-24); OPERATOR ID 23712; PCO2 (CO2 TENSION) 34 MMHG (35-45); PO2 (O2 TENSION) 133 MMHG (79-93); SAMPLE Arterial; TIDAL VOLUME 450 ML; pH 7.23 (7.37-7.43)
[2016-08-25 04:00] LABS: HEMATOCRIT 24.8 % (40.0-51.0); HEMOGLOBIN 8.2 g/dL (13.6-17.8); MEAN CORPUS HGB CONC 33.1 g/dL (32.0-36.0); MEAN CORPUSCULAR HEMOGLOB 33.9 pg (26.0-34.0); MEAN CORPUSCULAR VOLUME 102.5 fL (80-100); MEAN PLATELET VOLUME 12.4 fL (9.2-13.0); NUCLEATED RED BLOOD CELLS 6.8 /100WBC (0-0); RBC DISTRIBUTION WIDTH 17.5 % (12.0-16.0); RED CELL COUNT 2.42 10/6/uL (4.7-6.1); WHITE BLOOD CELLS 12.7 10/3/uL (4.5-10.5)
[2016-08-25 04:01] LABS: MANUAL DIFF YES %; PLATELET COUNT 31 10/3/uL (150-400)
[2016-08-25 04:21] LABS: A/G RATIO 1.4 (0.7-1.9); ALBUMIN 2.9 G/DL (3.5-5.0); BUN (BLOOD UREA NITROGEN) 8 MG/DL (6-23); CHLORIDE, SERUM 98 MMOL/L (96-112); CREATININE 1.61 MG/DL (0.70-1.30); DIRECT BILIRUBIN 1.2 MG/DL (0.0-0.4); GFR AFRICAN AMERICAN 48 ML/MIN (>=60); GFR NON AFRICAN AMERICAN 42 ML/MIN (>=60); GLOBULIN 2.1 G/DL (2.5-4.1); PHOSPHORUS, SERUM 3.9 MG/DL (2.5-4.5); POTASSIUM, SERUM 4.3 MMOL/L (3.5-5.3); SODIUM, SERUM 139 MMOL/L (135-148)
[2016-08-25 04:24] LABS: CALCIUM, SERUM 8.4 MG/DL (8.5-10.4); CO2 (CARBON DIOXIDE) 14 MMOL/L (24-34); GLUCOSE, SERUM 146 MG/DL (60-99); INDIRECT BILIRUBIN(NOT ORDER) 1.3 MG/DL (0.1-0.9); TOTAL BILIRUBIN 2.5 MG/DL (0-1.2)
[2016-08-25 04:25] LABS: ALKALINE PHOSPHATASE 90 U/L (45-117)
[2016-08-25 04:35] LABS: SGPT(ALT) 4065 U/L (5-65)
[2016-08-25 04:40] LABS: BAND NEUTROPHILS 1 %; LYMPHOCYTES 3 %; LYMPHOCYTES ABSOLUTE (CALC) 0.38 10/3/uL (0.67-4.30); MONOCYTES 5 %; MONOCYTES ABSOLUTE (CALC) 0.64 10/3/uL (0.21-1.20); NEUTROPHILS ABSOLUTE (CALC) 11.68 10/3/uL (2.02-8.40); SEGMENTED NEUTROPHIL (0) 91 %; TOTAL NUCLEATED CELLS 100
[2016-08-25 04:41] LABS: ANISOCYTOSIS 1+ (5-10/OIF) (0-5/OIF); BURR CELLS 1+ (3-10/OIF) (0-2/OIF); MACROCYTES 1+ (5-10/OIF) (0-5/OIF)
[2016-08-25 07:09] LABS: SGOT(AST) 15500 U/L (5-40)
== END 2016-08-25 10:16 | disposition expired | DRG 871 ==
LOC: MIC 02:39 → CCU 08-23 19:27
PROVIDERS: Internal Medicine; Internal Medicine Critical Care Medicine; Internal Medicine Nephrology; Internal Medicine Pulmonary Disease
PROC: 02HV33Z Insertion of Infusion Device into Superior Vena Cava, Percutaneous Approach (ICD-10-PCS; 2016-08-18)
PROC: 05HM33Z Insertion of Infusion Device into Right Internal Jugular Vein, Percutaneous Approach (ICD-10-PCS; 2016-08-19)
PROC: B5131ZA Fluoroscopy of Right Jugular Veins using Low Osmolar Contrast, Guidance (ICD-10-PCS; 2016-08-19)
PROC: 5A1945Z Respiratory Ventilation, 24-96 Consecutive Hours (ICD-10-PCS; principal; 2016-08-24)
PROC: 0BH17EZ Insertion of Endotracheal Airway into Trachea, Via Natural or Artificial Opening (ICD-10-PCS; 2016-08-24)
PROC: 5A12012 Performance of Cardiac Output, Single, Manual (ICD-10-PCS; 2016-08-25)
DX: A41.9 Sepsis, unspecified organism (principal); K55.049 Acute infarction of large intestine, extent unspecified; J69.0 Pneumonitis due to inhalation of food and vomit; J96.01 Acute respiratory failure with hypoxia; R65.21 Severe sepsis with septic shock; N17.9 Acute kidney failure, unspecified; E87.2 Acidosis; K50.00 Crohn's disease of small intestine without complications; I48.91 Unspecified atrial fibrillation; D61.818 Other pancytopenia; E86.0 Dehydration; M62.82 Rhabdomyolysis; I46.9 Cardiac arrest, cause unspecified; E78.00 Pure hypercholesterolemia, unspecified; Z23 Encounter for immunization; I12.9 Hypertensive chronic kidney disease with stage 1 through stage 4 chronic kidney disease, or unspecified chronic kidney disease; M54.9 Dorsalgia, unspecified; N18.9 Chronic kidney disease, unspecified; E78.5 Hyperlipidemia, unspecified; M10.9 Gout, unspecified; Z66 Do not resuscitate; N31.9 Neuromuscular dysfunction of bladder, unspecified; Z90.49 Acquired absence of other specified parts of digestive tract; Z91.81 History of falling; Z98.890 Other specified postprocedural states; Z79.899 Other long term (current) drug therapy
CPT/HCPCS: 31720; 36415; 36558; 36569; 36600; 71010; 74000; 74177; 76775; 77001; 80048; 80053; 80069; 81001; 82140; 82248; 82272; 82330; 82530; 82533; 82550; 82553; 82607; 82746; 82803; 82805; 82947; 82962; 83605; 83735; 83880; 84100; 84132; 84145; 84295; 84436; 84443; 84484; 85014; 85025; 85610; 85730; 86850; 86900; 86901; 86920; 87040; 87070; 87086; 87205; 87449; 87493; 87493-59; 87641; 87804; 90662; 92950; 93005; 94002; 94660; 94770; A9270-GY; C1750; C1751; C1894; C8929; C9113; G0008; J0610; J1720; J2185; J2250; J2370; J2405; J2543; J3010; J3370; P9016; P9047; Q9957; Q9967